=== PATIENT | male | born 1965 | race Caucasian/White ===

== ENCOUNTER 2022-11-12 08:41 | Inpatient (IN) | payer OTHER, MEDICAID ==
[~2022-11-12] VITALS: Ht 162.6 cm; Wt 60.8 kg
[2022-11-12 08:41] VITALS: BP_SYST 122; PULSE 66; RESP 19; TEMP 98.3; O2SAT 96
[~2022-11-12 08:41] MED LIST: OLAN2.5T3 PO
[2022-11-12 09:23] LABS: BASOPHILS % (AUTO) 0.2 % (0.0-2.0); EOSINOPHILS % (AUTO) 0.1 % (0.0-4.0); HEMATOCRIT 36.9 % (36-54); HEMOGLOBIN 11.9 g/dL (14.0-18.0); LYMPHOCYTES # (AUTO) 1.2 K/uL (1.0-5.5); MEAN CORPUSCULAR HEMOGLOBIN 32 pg (27-31); MEAN CORPUSCULAR HGB CONC 32 % (32-36); MEAN CORPUSCULAR VOLUME 98 fL (79.0-98.0); MONOCYTES # (AUTO) 0.7 K/uL (0.0-1.0); MONOCYTES % (AUTO) 5.1 % (1.7-9.3); NEUTROPHILS # (AUTO) 11.3 K/uL (1.8-7.7); NEUTROPHILS % (AUTO) 85.6 % (40.0-70.0); PLATELET COUNT (AUTO) 175 K/uL (130-430); RED BLOOD CELL COUNT(AUTO) 3.75 MIL/uL (4.2-6.2); WHITE BLOOD COUNT (AUTO) 13.2 K/uL (4.8-10.8)
[2022-11-12 09:42] LABS: CALCIUM 8.2 mg/dL (8.4-11.0); CREATININE 1.02 mg/dL (0.55-1.30)
[2022-11-12 09:48] LABS: ALBUMIN 2.6 g/dL (3.4-4.8); TOTAL BILIRUBIN 2.5 mg/dL (0.0-1.0)
[2022-11-12] MEDS ORDERED: cefTRIAXone 1 GM IVPB PREMIX 50 ML IV ONE (10:15)
[2022-11-12] MEDS ORDERED: LACTULOSE 20 GM/30 ML UDC PO ONE (10:15)
[2022-11-12] MEDS ORDERED: POTASSIUM CHLORIDE 20 MEQ/PKT PACKET PO ONE (10:45)
[2022-11-12] MEDS ORDERED: FURO20TA4 PO (10:49)
[2022-11-12] MEDS ORDERED: SPIR25TA6 PO (10:49)
[2022-11-12] MEDS ORDERED: PANT40TA45 PO (10:49)
[2022-11-12] MEDS ORDERED: ERGO1250 PO (10:49)
[2022-11-12] MEDS ORDERED: LACT10SO6 (10:49)
[2022-11-12] MEDS ORDERED: ONDA4TAB55 PO (10:49)
[2022-11-12] MEDS ORDERED: ALBMDI INH (10:49)
[2022-11-12] MEDS ORDERED: PRED15SO23 PO (10:49)
[2022-11-12] MEDS ORDERED: FOLI-43 PO (10:49)
[2022-11-12] MEDS ORDERED: MIDO5TAB4 PO (10:49)
[2022-11-12 11:00] LABS: INR 1.4 (0.80-1.20)
[2022-11-12 11:08] LABS: FREE T4 (FREE THYROXINE) 1.1 ng/dL (0.6-1.6); THYROID STIMULATING HORMONE 2.85 uIu/mL (0.34-4.82)
[2022-11-12] MEDS ORDERED: ONDANSETRON 4 MG ODT TAB PO ONE (11:15)
[2022-11-12 13:20] VITALS: BP_SYST 107; PULSE 115; RESP 18; TEMP 97.2; O2SAT 99
[2022-11-12 16:00] VITALS: BP_SYST 119; PULSE 79; RESP 19; TEMP 98; O2SAT 98
[2022-11-12] MEDS ORDERED: ONDANSETRON HCL 4 MG/2 ML VIAL IVP PRN (18:45)
[2022-11-12] MEDS ORDERED: NALOXONE HCL 0.4 MG/ML AMP (NARCAN) IVP PRN (18:45)
[2022-11-12 20:00] VITALS: BP_SYST 106; PULSE 110; RESP 20; TEMP 98.9; O2SAT 100
[2022-11-12] MEDS: LACTULOSE 20 GM/30 ML UDC PO SCH (21:00)
[2022-11-12] MEDS: HYDROcodone/ACETAMIN 5-325 MG TAB (NORCO/ VICODIN) PO PRN (21:47)
[2022-11-12] MEDS: TEMAZEPAM 15 MG CAPSULE PO PRN (23:16)
[2022-11-13] VITALS (7 sets, daily range): BP systolic 94–119; PULSE 92–125; RESP 18–24; TEMP 97.5–99; O2SAT 97–100
[2022-11-13 05:21] LABS: BASOPHILS # (AUTO) 0.1 K/uL (0.0-0.2); BASOPHILS % (AUTO) 0.4 % (0.0-2.0); EOSINOPHILS # (AUTO) 0.1 K/uL (0.0-0.4); EOSINOPHILS % (AUTO) 0.5 % (0.0-4.0); HEMATOCRIT 31.3 % (36-54); HEMOGLOBIN 10.5 g/dL (14.0-18.0); LYMPHOCYTES # (AUTO) 2.5 K/uL (1.0-5.5); LYMPHOCYTES % (AUTO) 18.2 % (20.5-51.5); MEAN CORPUSCULAR HEMOGLOBIN 32 pg (27-31); MEAN CORPUSCULAR HGB CONC 34 % (32-36); MEAN CORPUSCULAR VOLUME 96 fL (79.0-98.0); MONOCYTES # (AUTO) 1.1 K/uL (0.0-1.0); MONOCYTES % (AUTO) 7.6 % (1.7-9.3); NEUTROPHILS # (AUTO) 10.2 K/uL (1.8-7.7); NEUTROPHILS % (AUTO) 73.3 % (40.0-70.0); PLATELET COUNT (AUTO) 179 K/uL (130-430); RED BLOOD CELL COUNT(AUTO) 3.25 MIL/uL (4.2-6.2); RED CELL DISTRIBUTION WIDTH 15.6 % (9.0-15.0); WHITE BLOOD COUNT (AUTO) 13.9 K/uL (4.8-10.8)
[2022-11-13 05:52] LABS: ALBUMIN 2.1 g/dL (3.4-4.8); CALCIUM 7.1 mg/dL (8.4-11.0); CREATININE 1.19 mg/dL (0.55-1.30); TOTAL BILIRUBIN 1.5 mg/dL (0.0-1.0)
[2022-11-13] MEDS ORDERED: POTASSIUM CHLORIDE 20 MEQ TAB.PRT.SR PO ONE (06:30)
[2022-11-13] MEDS: LACTULOSE 20 GM/30 ML UDC PO SCH ×4 (08:41→21:25)
[2022-11-13] MEDS: HYDROcodone/ACETAMIN 5-325 MG TAB (NORCO/ VICODIN) PO PRN ×2 (11:33→17:54)
[2022-11-13 12:50] LABS: ALBUMIN 1.8 g/dL (3.4-4.8); CALCIUM 7.3 mg/dL (8.4-11.0); CREATININE 1.05 mg/dL (0.55-1.30); TOTAL BILIRUBIN 1.3 mg/dL (0.0-1.0)
[2022-11-13 14:23] LABS: BODY FLUID TOTAL PROTEIN 1.1 g/dL
[2022-11-13] MEDS: RIFAXIMIN 550 MG TABLET PO SCH (21:25)
[2022-11-13] MEDS: TEMAZEPAM 15 MG CAPSULE PO PRN (21:31)
[2022-11-14] VITALS (7 sets, daily range): BP systolic 98–119; PULSE 96–109; RESP 16–20; TEMP 97.5–99; O2SAT 95–100
[2022-11-14] MEDS: HYDROcodone/ACETAMIN 5-325 MG TAB (NORCO/ VICODIN) PO PRN ×3 (00:04→18:28)
[2022-11-14] MEDS ORDERED: MAG-AL HYDROX/SIMETH 30 ML UDC PO PRN (04:45)
[2022-11-14 08:06] LABS: HEPATITIS A AB, IgM Negative (Negative); HEPATITIS B CORE AB, IgM Negative (Negative); HEPATITIS B SURFACE AG Negative (Negative)
[2022-11-14] MEDS: LACTULOSE 20 GM/30 ML UDC PO SCH ×3 (08:55→20:54)
[2022-11-14] MEDS: RIFAXIMIN 550 MG TABLET PO SCH ×2 (10:06→21:12)
[2022-11-14] MEDS: TEMAZEPAM 15 MG CAPSULE PO PRN (21:12)
[2022-11-15 00:14] VITALS: BP_SYST 136; PULSE 56; RESP 20; TEMP 97.4; O2SAT 96
[2022-11-15] MEDS: HYDROcodone/ACETAMIN 5-325 MG TAB (NORCO/ VICODIN) PO PRN ×3 (00:39→20:38)
[2022-11-15 07:55] VITALS: BP_SYST 90; PULSE 112; RESP 14; TEMP 97.2; O2SAT 99
[2022-11-15] MEDS: LACTULOSE 20 GM/30 ML UDC PO SCH ×3 (09:00→20:43)
[2022-11-15] MEDS: RIFAXIMIN 550 MG TABLET PO SCH ×2 (09:50→20:39)
[2022-11-15 11:49] VITALS: BP_SYST 102; PULSE 115; RESP 18; TEMP 98.2; O2SAT 98
[2022-11-15 17:58] VITALS: BP_SYST 103; PULSE 103; RESP 18; TEMP 99; O2SAT 99
[2022-11-15 20:00] VITALS: BP_SYST 104; PULSE 116; RESP 20; TEMP 96.6; O2SAT 97
[2022-11-15 20:15] VITALS: O2SAT 97
[2022-11-15] MEDS: TEMAZEPAM 15 MG CAPSULE PO PRN (20:38)
[2022-11-16] MEDS: HYDROcodone/ACETAMIN 5-325 MG TAB (NORCO/ VICODIN) PO PRN ×4 (02:27→22:07)
[2022-11-16 02:30] VITALS: BP_SYST 107; PULSE 117; RESP 20
[2022-11-16 08:00] VITALS: O2SAT 99
[2022-11-16 08:10] VITALS: BP_SYST 93; PULSE 100; RESP 16; TEMP 98; O2SAT 99
[2022-11-16] MEDS: LACTULOSE 20 GM/30 ML UDC PO SCH ×4 (09:00→20:34)
[2022-11-16] MEDS: RIFAXIMIN 550 MG TABLET PO SCH ×2 (09:06→20:31)
[2022-11-16] MEDS ORDERED: SPIRONOLACTONE 50 MG TABLET (ALDACTONE) PO ONE (10:30)
[2022-11-16] MEDS ORDERED: FUROSEMIDE 40 MG TABLET PO ONE (10:30)
[2022-11-16 11:30] VITALS: BP_SYST 109; PULSE 88; RESP 18; TEMP 98.4; O2SAT 100
[2022-11-16 20:30] VITALS: BP_SYST 114; PULSE 130; RESP 20; TEMP 98.6; O2SAT 99
[2022-11-16] MEDS: TEMAZEPAM 15 MG CAPSULE PO PRN (22:06)
[2022-11-17 00:17] VITALS: BP_SYST 110; PULSE 124; RESP 20; TEMP 98.8; O2SAT 99
[2022-11-17] MEDS: HYDROcodone/ACETAMIN 5-325 MG TAB (NORCO/ VICODIN) PO PRN ×2 (04:02→11:59)
[2022-11-17 05:22] LABS: BASOPHILS # (AUTO) 0.1 K/uL (0.0-0.2); BASOPHILS % (AUTO) 0.8 % (0.0-2.0); EOSINOPHILS # (AUTO) 0.1 K/uL (0.0-0.4); EOSINOPHILS % (AUTO) 1.6 % (0.0-4.0); HEMATOCRIT 31.6 % (36-54); HEMOGLOBIN 10.5 g/dL (14.0-18.0); LYMPHOCYTES # (AUTO) 2.3 K/uL (1.0-5.5); LYMPHOCYTES % (AUTO) 29.2 % (20.5-51.5); MEAN CORPUSCULAR HEMOGLOBIN 32 pg (27-31); MEAN CORPUSCULAR HGB CONC 33 % (32-36); MEAN CORPUSCULAR VOLUME 96 fL (79.0-98.0); MONOCYTES # (AUTO) 1.2 K/uL (0.0-1.0); MONOCYTES % (AUTO) 14.7 % (1.7-9.3); NEUTROPHILS # (AUTO) 4.3 K/uL (1.8-7.7); NEUTROPHILS % (AUTO) 53.7 % (40.0-70.0); PLATELET COUNT (AUTO) 201 K/uL (130-430); RED BLOOD CELL COUNT(AUTO) 3.28 MIL/uL (4.2-6.2); RED CELL DISTRIBUTION WIDTH 15.3 % (9.0-15.0)
[2022-11-17 05:32] LABS: CALCIUM 7.4 mg/dL (8.4-11.0); CREATININE 1.01 mg/dL (0.55-1.30); TOTAL BILIRUBIN 0.8 mg/dL (0.0-1.0)
[2022-11-17 08:00] VITALS: BP_SYST 112; PULSE 91; RESP 20; TEMP 97.6; O2SAT 97
[2022-11-17] MEDS ORDERED: SPIRONOLACTONE 50 MG TABLET (ALDACTONE) PO SCH (09:00)
[2022-11-17] MEDS: RIFAXIMIN 550 MG TABLET PO SCH (09:00)
[2022-11-17] MEDS ORDERED: FUROSEMIDE 40 MG TABLET PO SCH (09:00)
[2022-11-17] MEDS: LACTULOSE 20 GM/30 ML UDC PO SCH (10:30)
[2022-11-17 12:12] VITALS: BP_SYST 126; PULSE 75; RESP 20; TEMP 97.6; O2SAT 90
[2022-11-17 14:11] VITALS: BP_SYST 121; PULSE 77; RESP 20; TEMP 98.2; O2SAT 99
== END 2022-11-17 16:20 | disposition home or self-care (01) | DRG 432 ==
LOC: SED 08:41 → SMU 10:41
PROVIDERS: ADMIT Internal Medicine; ATTEND Internal Medicine
PROC: 0W9G3ZZ Drainage of Peritoneal Cavity, Percutaneous Approach (ICD-10-PCS; principal; 2022-11-12)
DX: K70.31 Alcoholic cirrhosis of liver with ascites (principal); R65.11 Systemic inflammatory response syndrome (SIRS) of non-infectious origin with acute organ dysfunction; K72.10 Chronic hepatic failure without coma; K76.82 Hepatic encephalopathy; J45.909 Unspecified asthma, uncomplicated; F29 Unspecified psychosis not due to a substance or known physiological condition; F32.A Depression, unspecified; F10.20 Alcohol dependence, uncomplicated; Y90.9 Presence of alcohol in blood, level not specified; D64.9 Anemia, unspecified; Z20.822 Contact with and (suspected) exposure to COVID-19; Z59.00 Homelessness unspecified
CPT/HCPCS: 36415; 49083; 71045; 76700-TC; 76705; 80053; 80074; 82140; 82947; 83690; 84157; 84439; 84443; 85025; 85610-TC; 85730-TC; 87070-TC; 87081; 93005; 96365; 99285; J0696; J2405; Q0162

== ENCOUNTER 2022-11-28 07:05 | Emergency (ER) | payer OTHER, MEDICAID ==
[~2022-11-28] VITALS: Ht 165.1 cm; Wt 70.8 kg
[~2022-11-28 07:05] MED LIST changes: +ALBMDI INH; +ERGO1250 PO; +FOLI-43 PO; +FURO20TA4 PO; +LACT10SO6; +MIDO5TAB4 PO; +ONDA4TAB55 PO; +PANT40TA45 PO; +PRED15SO23 PO; +SPIR25TA6 PO
[2022-11-28 07:10] VITALS: BP_SYST 112
[2022-11-28 08:11] LABS: BASOPHILS % (AUTO) 0.5 % (0.0-2.0); EOSINOPHILS % (AUTO) 0.1 % (0.0-4.0); HEMATOCRIT 38.2 % (36-54); HEMOGLOBIN 12.6 g/dL (14.0-18.0); LYMPHOCYTES # (AUTO) 0.8 K/uL (1.0-5.5); LYMPHOCYTES % (AUTO) 8.5 % (20.5-51.5); MEAN CORPUSCULAR HEMOGLOBIN 32 pg (27-31); MEAN CORPUSCULAR HGB CONC 33 % (32-36); MEAN CORPUSCULAR VOLUME 96 fL (79.0-98.0); MONOCYTES # (AUTO) 0.4 K/uL (0.0-1.0); MONOCYTES % (AUTO) 3.7 % (1.7-9.3); NEUTROPHILS # (AUTO) 8.7 K/uL (1.8-7.7); NEUTROPHILS % (AUTO) 87.2 % (40.0-70.0); PLATELET COUNT (AUTO) 294 K/uL (130-430); RED CELL DISTRIBUTION WIDTH 14.9 % (9.0-15.0)
[2022-11-28 08:20] LABS: INR 1.2 (0.80-1.20); PROTHROMBIN TIME 12.5 SECS (9.5-12.5)
[2022-11-28 08:23] LABS: ALANINE AMINOTRANSFERASE 16 U/L (12-78); ALBUMIN 2.4 g/dL (3.4-4.8); AMYLASE 145 U/L (0-100); ANION GAP 15 (5-15); ASPARTATE AMINOTRANSFERASE 41 U/L (10-37); C-REACTIVE PROTEIN QUANT 2.5 mg/dL (0-0.5); CALCIUM 7.9 mg/dL (8.4-11.0); CHLORIDE 99 mmol/L (98-107); CREATININE 0.98 mg/dL (0.55-1.30); GFR AFRICAN AMERICAN 102 mL/min (>90); GLUCOSE 86 mg/dL (70-99); LIPASE 379 U/L (73-393); TOTAL BILIRUBIN 1.7 mg/dL (0.0-1.0); UREA NITROGEN, BLOOD 6 mg/dL (8-21)
[2022-11-28 08:38] LABS: ACETONE, SERUM NEGATIVE (NEGATIVE)
[2022-11-28] MEDS ORDERED: POTASSIUM CHLORIDE 20 MEQ/PKT PACKET PO ONE (09:15)
[2022-11-28] MEDS ORDERED: POTASSIUM CHLORIDE 20 MEQ/PKT PACKET ONE (09:21)
[2022-11-28 10:09] VITALS: BP_SYST 102
== END 2022-11-28 10:09 | disposition home or self-care (01) ==
LOC: SED 07:05
DX: K70.31 Alcoholic cirrhosis of liver with ascites (principal); R85.5 Abnormal microbiological findings in specimens from digestive organs and abdominal cavity; R10.84 Generalized abdominal pain; J45.909 Unspecified asthma, uncomplicated; Z79.899 Other long term (current) drug therapy
CPT/HCPCS: 36415; 49083; 80053; 82009; 82150; 83605; 83690; 85025; 85610-TC; 85730-TC; 86140; 99285

== ENCOUNTER 2023-05-07 15:40 | Inpatient (IN) | payer OTHER, MEDICAID ==
[~2023-05-07] VITALS: Ht 162.6 cm; Wt 63.6 kg
[2023-05-07 15:40] VITALS: BP_SYST 121; PULSE 91; RESP 20; TEMP 97.8; O2SAT 100
[~2023-05-07 15:40] MED LIST changes: +FURO-150 PO; -FURO20TA4 PO; -PRED15SO23 PO; +PRED15SO72 PO; +SERT-436 PO; +SPIR25TA PO; -SPIR25TA6 PO; +TRAZ-250 PO
[2023-05-08] LABS: BASOPHILS # (AUTO) 0.1 K/uL (0.0-0.2); BASOPHILS % (AUTO) 1.1 % (0.0-2.0); EOSINOPHILS # (AUTO) 0.2 K/uL (0.0-0.4); EOSINOPHILS % (AUTO) 2.4 % (0.0-4.0); HEMATOCRIT 32.5 % (36-54); HEMOGLOBIN 10.7 g/dL (14.0-18.0); LYMPHOCYTES # (AUTO) 1.9 K/uL (1.0-5.5); LYMPHOCYTES % (AUTO) 23.6 % (20.5-51.5); MEAN CORPUSCULAR HEMOGLOBIN 31 pg (27-31); MEAN CORPUSCULAR HGB CONC 33 % (32-36); MEAN CORPUSCULAR VOLUME 93 fL (79.0-98.0); MONOCYTES # (AUTO) 0.4 K/uL (0.0-1.0); MONOCYTES % (AUTO) 4.8 % (1.7-9.3); NEUTROPHILS # (AUTO) 5.5 K/uL (1.8-7.7); NEUTROPHILS % (AUTO) 68.1 % (40.0-70.0); PLATELET COUNT (AUTO) 441 K/uL (130-430); RED BLOOD CELL COUNT(AUTO) 3.49 MIL/uL (4.2-6.2); WHITE BLOOD COUNT (AUTO) 8.1 K/uL (4.8-10.8)
[2023-05-08 00:16] LABS: CALCIUM 8.2 mg/dL (8.4-11.0); CREATININE 0.9 mg/dL (0.55-1.30); POTASSIUM 3.1 mmol/L (3.5-5.1)
[2023-05-08 00:22] LABS: ALBUMIN 1.8 g/dL (3.4-4.8); TOTAL BILIRUBIN 0.8 mg/dL (0.0-1.0); TOTAL PROTEIN, SERUM 6.6 g/dL (6.4-8.3)
[2023-05-08 01:40] LABS: BILIRUBIN,URINE NEGATIVE (NEGATIVE); BLOOD, URINE NEGATIVE (NEGATIVE); CLARITY/URINE CLEAR (CLEAR); COLOR,URINE YELLOW (YELLOW); GLUCOSE,URINE NEGATIVE (NEGATIVE); KETONES,URINE NEGATIVE (NEGATIVE); LEUKOCYTE ESTERASE ,URINE NEGATIVE (NEGATIVE); NITRITE, URINE NEGATIVE (NEGATIVE)
[2023-05-08 02:20] VITALS: BP_SYST 107; PULSE 100; RESP 18; TEMP 98.9
[2023-05-08 03:26] LABS: PROTEIN URINE NEGATIVE (NEGATIVE)
[2023-05-08 05:42] LABS: BASOPHILS # (AUTO) 0.1 K/uL (0.0-0.2); BASOPHILS % (AUTO) 1.3 % (0.0-2.0); EOSINOPHILS # (AUTO) 0.3 K/uL (0.0-0.4); EOSINOPHILS % (AUTO) 3.3 % (0.0-4.0); HEMATOCRIT 31.2 % (36-54); HEMOGLOBIN 10.1 g/dL (14.0-18.0); LYMPHOCYTES # (AUTO) 1.5 K/uL (1.0-5.5); MEAN CORPUSCULAR HEMOGLOBIN 30 pg (27-31); MEAN CORPUSCULAR HGB CONC 32 % (32-36); MEAN CORPUSCULAR VOLUME 94 fL (79.0-98.0); MONOCYTES # (AUTO) 0.5 K/uL (0.0-1.0); MONOCYTES % (AUTO) 6.1 % (1.7-9.3); NEUTROPHILS # (AUTO) 5.3 K/uL (1.8-7.7); NEUTROPHILS % (AUTO) 69.3 % (40.0-70.0); PLATELET COUNT (AUTO) 370 K/uL (130-430); RED BLOOD CELL COUNT(AUTO) 3.33 MIL/uL (4.2-6.2); RED CELL DISTRIBUTION WIDTH 14.4 % (9.0-15.0); WHITE BLOOD COUNT (AUTO) 7.7 K/uL (4.8-10.8)
[2023-05-08] MEDS: MORPHINE 2 MG/ML INJ. SYRINGE IVP PRN ×3 (05:48→20:39)
[2023-05-08 05:55] LABS: CALCIUM 8.3 mg/dL (8.4-11.0); CREATININE 0.87 mg/dL (0.55-1.30); POTASSIUM 3.1 mmol/L (3.5-5.1)
[2023-05-08 05:59] LABS: ALBUMIN 1.7 g/dL (3.4-4.8); INR 1.1 (0.80-1.20); PROTHROMBIN TIME 11.4 SECS (9.5-12.5); TOTAL BILIRUBIN 0.8 mg/dL (0.0-1.0); TOTAL PROTEIN, SERUM 6.2 g/dL (6.4-8.3)
[2023-05-08 08:00] VITALS: BP_SYST 106; PULSE 108; RESP 22; TEMP 98.8; O2SAT 100
[2023-05-08] MEDS: FUROSEMIDE 40 MG TABLET PO SCH (09:14)
[2023-05-08] MEDS: SPIRONOLACTONE 50 MG TABLET (ALDACTONE) PO SCH (09:15)
[2023-05-08 12:53] VITALS: BP_SYST 108; PULSE 101; RESP 20; TEMP 98.6; O2SAT 98
[2023-05-08 15:36] LABS: BF APPEARANCE UNSPUN CLEAR (CLEAR); BODY FLUID COLOR YELLOW (LT YELLOW); BODY FLUID TOTAL VOLUME 2125 mL; RBC, BODY FLUID 8 /uL; SOURCE/TYPE ,BODY FLUID PARACENTESIS; WBC, BODY FLUID 18 /uL
[2023-05-08 15:37] LABS: LYMPHOCYTES, BODY FLUID 78 %; NEUTROPHIL, BODY FLUID 22 %
[2023-05-08] MEDS: MIDODRINE HCL 5 MG TABLET (PROAMATINE) PO SCH ×2 (15:41→20:38)
[2023-05-08 16:34] VITALS: BP_SYST 107; PULSE 105; RESP 21; TEMP 98.7; O2SAT 99
[2023-05-08] MEDS: LACTULOSE 20 GM/30 ML UDC PO SCH (20:38)
[2023-05-09 00:14] VITALS: BP_SYST 86; PULSE 83; RESP 18; TEMP 99; O2SAT 96
[2023-05-09] MEDS: MORPHINE 2 MG/ML INJ. SYRINGE IVP PRN ×2 (02:52→18:30)
[2023-05-09 06:06] LABS: BODY FLUID GLUCOSE 98 mg/dL; BODY FLUID TOTAL PROTEIN < 2.0 g/dL
[2023-05-09 07:40] LABS: BASOPHILS # (AUTO) 0.1 K/uL (0.0-0.2); BASOPHILS % (AUTO) 0.8 % (0.0-2.0); EOSINOPHILS # (AUTO) 0.4 K/uL (0.0-0.4); EOSINOPHILS % (AUTO) 4.2 % (0.0-4.0); HEMATOCRIT 31.2 % (36-54); HEMOGLOBIN 10.1 g/dL (14.0-18.0); LYMPHOCYTES # (AUTO) 1.9 K/uL (1.0-5.5); LYMPHOCYTES % (AUTO) 22.1 % (20.5-51.5); MEAN CORPUSCULAR HEMOGLOBIN 30 pg (27-31); MEAN CORPUSCULAR HGB CONC 32 % (32-36); MEAN CORPUSCULAR VOLUME 94 fL (79.0-98.0); MONOCYTES # (AUTO) 0.5 K/uL (0.0-1.0); MONOCYTES % (AUTO) 6.3 % (1.7-9.3); NEUTROPHILS # (AUTO) 5.6 K/uL (1.8-7.7); NEUTROPHILS % (AUTO) 66.6 % (40.0-70.0); PLATELET COUNT (AUTO) 274 K/uL (130-430); RED BLOOD CELL COUNT(AUTO) 3.32 MIL/uL (4.2-6.2); RED CELL DISTRIBUTION WIDTH 14.2 % (9.0-15.0); WHITE BLOOD COUNT (AUTO) 8.5 K/uL (4.8-10.8)
[2023-05-09 07:41] VITALS: BP_SYST 92; PULSE 85; RESP 16; TEMP 97.1; O2SAT 98
[2023-05-09 07:47] LABS: CALCIUM 7.5 mg/dL (8.4-11.0); CREATININE 0.83 mg/dL (0.55-1.30); POTASSIUM 3.1 mmol/L (3.5-5.1)
[2023-05-09] MEDS: LACTULOSE 20 GM/30 ML UDC PO SCH ×3 (09:00→21:09)
[2023-05-09] MEDS: SERTRALINE HCL 50 MG TABLET PO SCH (09:00)
[2023-05-09] MEDS: FOLIC ACID 1 MG TABLET PO SCH (09:54)
[2023-05-09] MEDS: OLANZapine 2.5 MG TABLET PO SCH (09:55)
[2023-05-09] MEDS: MIDODRINE HCL 5 MG TABLET (PROAMATINE) PO SCH ×3 (09:55→21:09)
[2023-05-09] MEDS: FUROSEMIDE 40 MG TABLET PO SCH (09:56)
[2023-05-09] MEDS: PANTOPRAZOLE SODIUM 40 MG TAB PO SCH (09:56)
[2023-05-09] MEDS: SPIRONOLACTONE 50 MG TABLET (ALDACTONE) PO SCH (09:57)
[2023-05-09] MEDS ORDERED: POTASSIUM CHLORIDE 20 MEQ TABLET.ER PO ONE (11:45)
[2023-05-09 12:01] VITALS: BP_SYST 99; PULSE 89; RESP 17; TEMP 98.4; O2SAT 98
[2023-05-09 16:00] VITALS: BP_SYST 98; PULSE 86; RESP 17; TEMP 97.8; O2SAT 97
[2023-05-09 20:00] VITALS: BP_SYST 100; PULSE 76; RESP 18; TEMP 98.4; O2SAT 96
[2023-05-09] MEDS: traZODone HCL 50 MG TABLET (DESYREL) PO PRN (21:09)
[2023-05-10] VITALS: BP_SYST 103; PULSE 95; RESP 18; TEMP 97.3; O2SAT 94
[2023-05-10] MEDS: MORPHINE 2 MG/ML INJ. SYRINGE IVP PRN (01:46)
[2023-05-10 07:35] LABS: BASOPHILS % (AUTO) 0.4 % (0.0-2.0); EOSINOPHILS # (AUTO) 0.2 K/uL (0.0-0.4); EOSINOPHILS % (AUTO) 1.7 % (0.0-4.0); HEMATOCRIT 24.8 % (36-54); HEMOGLOBIN 7.7 g/dL (14.0-18.0); LYMPHOCYTES # (AUTO) 1.5 K/uL (1.0-5.5); LYMPHOCYTES % (AUTO) 13.3 % (20.5-51.5); MEAN CORPUSCULAR HEMOGLOBIN 30 pg (27-31); MEAN CORPUSCULAR HGB CONC 31 % (32-36); MEAN CORPUSCULAR VOLUME 95 fL (79.0-98.0); MONOCYTES # (AUTO) 0.4 K/uL (0.0-1.0); MONOCYTES % (AUTO) 3.2 % (1.7-9.3); NEUTROPHILS # (AUTO) 9.2 K/uL (1.8-7.7); NEUTROPHILS % (AUTO) 81.4 % (40.0-70.0); PLATELET COUNT (AUTO) 300 K/uL (130-430); RED BLOOD CELL COUNT(AUTO) 2.61 MIL/uL (4.2-6.2); RED CELL DISTRIBUTION WIDTH 13.7 % (9.0-15.0); WHITE BLOOD COUNT (AUTO) 11.3 K/uL (4.8-10.8)
[2023-05-10 07:44] LABS: CALCIUM 8.2 mg/dL (8.4-11.0); CREATININE 0.99 mg/dL (0.55-1.30); POTASSIUM 4.1 mmol/L (3.5-5.1)
[2023-05-10 08:00] VITALS: BP_SYST 97; PULSE 104; RESP 18; TEMP 98.4; O2SAT 97
[2023-05-10] MEDS: PANTOPRAZOLE SODIUM 40 MG TAB PO SCH (08:18)
[2023-05-10] MEDS: FUROSEMIDE 40 MG TABLET PO SCH (08:18)
[2023-05-10] MEDS: LACTULOSE 20 GM/30 ML UDC PO SCH ×2 (08:18→21:43)
[2023-05-10] MEDS: SPIRONOLACTONE 50 MG TABLET (ALDACTONE) PO SCH (08:19)
[2023-05-10] MEDS: FOLIC ACID 1 MG TABLET PO SCH (08:19)
[2023-05-10] MEDS: SERTRALINE HCL 50 MG TABLET PO SCH (08:19)
[2023-05-10] MEDS: OLANZapine 2.5 MG TABLET PO SCH (08:19)
[2023-05-10] MEDS: MIDODRINE HCL 5 MG TABLET (PROAMATINE) PO SCH ×3 (08:21→21:44)
[2023-05-10 09:55] VITALS: O2SAT 97
[2023-05-10 12:00] VITALS: BP_SYST 93; PULSE 94; RESP 18; TEMP 99.5; O2SAT 98
[2023-05-10] MEDS: HYDROcodone/ACETAMIN 5-325 MG TAB (NORCO/ VICODIN) PO PRN (12:21)
[2023-05-10 16:00] VITALS: BP_SYST 124; PULSE 112; RESP 18; TEMP 98.9; O2SAT 97
[2023-05-10 20:00] VITALS: BP_SYST 94; PULSE 91; RESP 20; TEMP 98.9; O2SAT 98
[2023-05-10] MEDS: traZODone HCL 50 MG TABLET (DESYREL) PO PRN (21:45)
[2023-05-11 00:05] VITALS: BP_SYST 96; PULSE 84; RESP 18; TEMP 98.5; O2SAT 96
[2023-05-11] MEDS: HYDROcodone/ACETAMIN 5-325 MG TAB (NORCO/ VICODIN) PO PRN (03:27)
[2023-05-11 06:02] LABS: BASOPHILS % (AUTO) 0.5 % (0.0-2.0); EOSINOPHILS # (AUTO) 0.2 K/uL (0.0-0.4); EOSINOPHILS % (AUTO) 2.9 % (0.0-4.0); HEMATOCRIT 28.2 % (36-54); LYMPHOCYTES # (AUTO) 1.4 K/uL (1.0-5.5); LYMPHOCYTES % (AUTO) 16.5 % (20.5-51.5); MEAN CORPUSCULAR HEMOGLOBIN 31 pg (27-31); MEAN CORPUSCULAR HGB CONC 32 % (32-36); MEAN CORPUSCULAR VOLUME 95 fL (79.0-98.0); MONOCYTES # (AUTO) 0.7 K/uL (0.0-1.0); MONOCYTES % (AUTO) 8.1 % (1.7-9.3); PLATELET COUNT (AUTO) 252 K/uL (130-430); RED BLOOD CELL COUNT(AUTO) 2.96 MIL/uL (4.2-6.2); WHITE BLOOD COUNT (AUTO) 8.3 K/uL (4.8-10.8)
[2023-05-11 06:17] LABS: CALCIUM 8.4 mg/dL (8.4-11.0); CREATININE 1.18 mg/dL (0.55-1.30); POTASSIUM 3.8 mmol/L (3.5-5.1)
[2023-05-11 08:00] VITALS: O2SAT 98
[2023-05-11] MEDS: PANTOPRAZOLE SODIUM 40 MG TAB PO SCH (09:04)
[2023-05-11] MEDS: MIDODRINE HCL 5 MG TABLET (PROAMATINE) PO SCH ×2 (09:06→16:11)
[2023-05-11] MEDS: SPIRONOLACTONE 50 MG TABLET (ALDACTONE) PO SCH (09:07)
[2023-05-11] MEDS: FUROSEMIDE 40 MG TABLET PO SCH (09:08)
[2023-05-11] MEDS: SERTRALINE HCL 50 MG TABLET PO SCH (09:11)
[2023-05-11] MEDS: OLANZapine 2.5 MG TABLET PO SCH (09:12)
[2023-05-11] MEDS: FOLIC ACID 1 MG TABLET PO SCH (09:12)
[2023-05-11] MEDS: LACTULOSE 20 GM/30 ML UDC PO SCH (09:13)
[2023-05-11 09:19] VITALS: BP_SYST 80; PULSE 68; RESP 18; TEMP 98.7; O2SAT 98
[2023-05-11 11:30] VITALS: BP_SYST 93; PULSE 99; RESP 18; TEMP 98.3; O2SAT 98
[2023-05-11 16:30] VITALS: BP_SYST 92; PULSE 80; RESP 18; TEMP 98; O2SAT 97
[2023-05-11 16:35] VITALS: BP_SYST 93; PULSE 99; RESP 18; TEMP 98.3; O2SAT 96
== END 2023-05-11 20:22 | DRG 432 ==
LOC: SED 15:40 → STU 05-08 01:09 → SMU 05-09 23:37
PROVIDERS: ADMIT Internal Medicine; ATTEND Internal Medicine
PROC: 0W9G3ZZ Drainage of Peritoneal Cavity, Percutaneous Approach (ICD-10-PCS; principal; 2023-05-08)
DX: K70.31 Alcoholic cirrhosis of liver with ascites (principal); E43 Unspecified severe protein-calorie malnutrition; Z59.00 Homelessness unspecified; J45.909 Unspecified asthma, uncomplicated; Z79.899 Other long term (current) drug therapy; Z90.49 Acquired absence of other specified parts of digestive tract; Z68.24 Body mass index [BMI] 24.0-24.9, adult
CPT/HCPCS: 36415; 49083; 71045; 80048; 80053; 81001; 81003; 82947; 83605; 84157; 85025; 85610-TC; 85730-TC; 87040; 87081; 88108; 89051-TC; 89060-TC; 93005; 97116-GP; 97530-GP; 99285; G0378; J2270

== ENCOUNTER 2023-09-12 20:48 | Inpatient (IN) | payer OTHER, MEDICAID ==
[~2023-09-12] VITALS: Ht 162.6 cm; Wt 63.5 kg
[~2023-09-12 20:48] MED LIST changes: -ALBMDI INH; -ERGO1250 PO; -ONDA4TAB55 PO; -PRED15SO72 PO
[2023-09-12 20:52] VITALS: BP_SYST 117; PULSE 63; RESP 20; TEMP 97.5; O2SAT 98
[2023-09-12 21:43] LABS: BASOPHILS % (AUTO) 0.5 % (0.0-2.0); EOSINOPHILS % (AUTO) 0.3 % (0.0-4.0); HEMATOCRIT 28.7 % (36-54); LYMPHOCYTES # (AUTO) 0.5 K/uL (1.0-5.5); LYMPHOCYTES % (AUTO) 8.6 % (20.5-51.5); MEAN CORPUSCULAR HEMOGLOBIN 32 pg (27-31); MEAN CORPUSCULAR HGB CONC 35 % (32-36); MEAN CORPUSCULAR VOLUME 92 fL (79.0-98.0); MONOCYTES # (AUTO) 0.3 K/uL (0.0-1.0); MONOCYTES % (AUTO) 5.1 % (1.7-9.3); NEUTROPHILS # (AUTO) 5.3 K/uL (1.8-7.7); NEUTROPHILS % (AUTO) 85.5 % (40.0-70.0); PLATELET COUNT (AUTO) 127 K/uL (130-430); RED BLOOD CELL COUNT(AUTO) 3.11 MIL/uL (4.2-6.2); RED CELL DISTRIBUTION WIDTH 16.3 % (9.0-15.0); WHITE BLOOD COUNT (AUTO) 6.2 K/uL (4.8-10.8)
[2023-09-12 22:00] LABS: CALCIUM 8.4 mg/dL (8.4-11.0); CREATININE 0.55 mg/dL (0.55-1.30)
[2023-09-12 22:01] LABS: ALBUMIN 3.3 g/dL (3.4-4.8); TOTAL PROTEIN, SERUM 7.9 g/dL (6.4-8.3)
[2023-09-12 22:05] LABS: POTASSIUM 2.9 mmol/L (3.5-5.1)
[2023-09-12 22:06] LABS: TOTAL BILIRUBIN 21.7 mg/dL (0.0-1.0)
[2023-09-12] MEDS ORDERED: KCL 20 mEq in 100 mL (PREMIX) 200 ML IV ONE (23:07)
[2023-09-12] MEDS: POTASSIUM CHLORIDE 40 MEQ in 0.45% NS 250 ML IV ONE (23:13)
[2023-09-12] MEDS: KCL 20 mEq in 100 mL (PREMIX) 100 ML IV ONE ×2 (23:15→23:21)
[2023-09-12] MEDS: MORPHINE 2 MG/ML INJ. SYRINGE IVP ONE (23:21)
[2023-09-13 00:15] LABS: BILIRUBIN,URINE 3+ (NEGATIVE); BLOOD, URINE NEGATIVE (NEGATIVE); CLARITY/URINE CLEAR (CLEAR); COLOR,URINE YELLOW (YELLOW); GLUCOSE,URINE NEGATIVE (NEGATIVE); KETONES,URINE TRACE (NEGATIVE); LEUKOCYTE ESTERASE ,URINE NEGATIVE (NEGATIVE); NITRITE, URINE NEGATIVE (NEGATIVE); PH,URINE 6.5 (5.0-8.0); PROTEIN URINE 1+ (NEGATIVE)
[2023-09-13 00:36] LABS: BARBITURATE, URINE NEGATIVE (NEG <=200); BENZODIAZEPINE, URINE NEGATIVE (NEG <=150); CANNABINOID, URINE NEGATIVE (NEG <=50); COCAINE, URINE NEGATIVE (NEG <=150); METHAMPHETAMINES SCREEN,URINE NEGATIVE (NEG <=500); OPIATE, URINE POSITIVE (NEG <=100); PHENCYCLIDINE SCREEN,URINE NEGATIVE (NEG <=25); UR TRICYCLIC ANTIDEPRESSANTS NEGATIVE (NEG <=300); URINE AMPHETAMINE NEGATIVE (NEG <=500); URINE METHADONE NEGATIVE (NEG <=200); URINE OXYCODONE SCREEN NEGATIVE (NEG <=100)
[2023-09-13 00:52] LABS: BACTERIA,URINE RARE /HPF (None Seen)
[2023-09-13] MEDS ORDERED: THIAMINE HCL 200 MG/2 ML VIAL ONE (01:25)
[2023-09-13] MEDS ORDERED: FOLIC ACID 5 MG/ML VIAL IV ONE (01:25)
[2023-09-13] MEDS ORDERED: MAGNESIUM SULFATE 1 GM/2 ML VIAL ONE (01:25)
[2023-09-13] MEDS ORDERED: MVI 10 ML VIAL IV ONE (01:25)
[2023-09-13] MEDS: PANTOPRAZOLE SODIUM 40 MG/VIAL (PROTONIX) IVP ONE ×2 (01:37→01:39)
[2023-09-13] MEDS: chlordiazePOXIDE HCL 25 MG CAPSULE PO ONE (01:39)
[2023-09-13] MEDS: FOLIC ACID 1 MG, THIAMINE HCL 100 MG, MAGNESIUM SULFATE 1 GM, MVI 10 ML in NACL 0.9% 1,... IV ONE (01:40)
[2023-09-13] MEDS: chlordiazePOXIDE HCL 25 MG CAPSULE PO SCH (09:15)
[2023-09-13] MEDS: PANTOPRAZOLE SODIUM 40 MG/VIAL (PROTONIX) IVP SCH (09:15)
[2023-09-13 12:00] VITALS: BP_SYST 128; PULSE 83; RESP 16; TEMP 99.7; O2SAT 97
[2023-09-13] MEDS: THIAMINE HCL 100 MG TABLET PO ONE (12:25)
[2023-09-13] MEDS: FOLIC ACID 1 MG TABLET PO ONE (12:25)
[2023-09-13 12:35] LABS: BASOPHILS # (AUTO) 0.1 K/uL (0.0-0.2); BASOPHILS % (AUTO) 0.8 % (0.0-2.0); EOSINOPHILS # (AUTO) 0.1 K/uL (0.0-0.4); EOSINOPHILS % (AUTO) 1.3 % (0.0-4.0); HEMATOCRIT 27.7 % (36-54); HEMOGLOBIN 9.5 g/dL (14.0-18.0); LYMPHOCYTES # (AUTO) 0.5 K/uL (1.0-5.5); LYMPHOCYTES % (AUTO) 8.6 % (20.5-51.5); MEAN CORPUSCULAR HEMOGLOBIN 32 pg (27-31); MEAN CORPUSCULAR HGB CONC 34 % (32-36); MEAN CORPUSCULAR VOLUME 93 fL (79.0-98.0); MONOCYTES # (AUTO) 0.5 K/uL (0.0-1.0); MONOCYTES % (AUTO) 9.1 % (1.7-9.3); NEUTROPHILS # (AUTO) 4.7 K/uL (1.8-7.7); NEUTROPHILS % (AUTO) 80.2 % (40.0-70.0); PLATELET COUNT (AUTO) 126 K/uL (130-430); RED BLOOD CELL COUNT(AUTO) 2.97 MIL/uL (4.2-6.2); RED CELL DISTRIBUTION WIDTH 16.4 % (9.0-15.0); WHITE BLOOD COUNT (AUTO) 5.9 K/uL (4.8-10.8)
[2023-09-13 12:38] LABS: CREATININE 0.65 mg/dL (0.55-1.30); POTASSIUM 3.8 mmol/L (3.5-5.1)
[2023-09-13 12:51] LABS: ALBUMIN 2.9 g/dL (3.4-4.8); TOTAL PROTEIN, SERUM 7.2 g/dL (6.4-8.3)
[2023-09-13 12:55] LABS: TOTAL BILIRUBIN 20.9 mg/dL (0.0-1.0)
[2023-09-13 16:58] VITALS: BP_SYST 123; PULSE 85; RESP 18; TEMP 99.7; O2SAT 98
[2023-09-13 20:00] VITALS: BP_SYST 115; PULSE 94; RESP 18; TEMP 100.4; O2SAT 98
[2023-09-13] MEDS: DIPHENHYDRAMINE INJ 50 MG/ML VIAL IVP PRN (20:29)
[2023-09-13 20:30] VITALS: O2SAT 98
[2023-09-14 00:15] VITALS: BP_SYST 121; PULSE 92; RESP 18; TEMP 99.8; O2SAT 95
[2023-09-14 06:34] LABS: BASOPHILS # (AUTO) 0.1 K/uL (0.0-0.2); BASOPHILS % (AUTO) 0.7 % (0.0-2.0); EOSINOPHILS # (AUTO) 0.2 K/uL (0.0-0.4); EOSINOPHILS % (AUTO) 2.5 % (0.0-4.0); HEMATOCRIT 27.2 % (36-54); HEMOGLOBIN 9.4 g/dL (14.0-18.0); LYMPHOCYTES # (AUTO) 0.9 K/uL (1.0-5.5); LYMPHOCYTES % (AUTO) 12.4 % (20.5-51.5); MEAN CORPUSCULAR HEMOGLOBIN 33 pg (27-31); MEAN CORPUSCULAR HGB CONC 35 % (32-36); MEAN CORPUSCULAR VOLUME 94 fL (79.0-98.0); MONOCYTES # (AUTO) 0.6 K/uL (0.0-1.0); MONOCYTES % (AUTO) 8.5 % (1.7-9.3); NEUTROPHILS # (AUTO) 5.6 K/uL (1.8-7.7); NEUTROPHILS % (AUTO) 75.9 % (40.0-70.0); PLATELET COUNT (AUTO) 125 K/uL (130-430); RED BLOOD CELL COUNT(AUTO) 2.88 MIL/uL (4.2-6.2); RED CELL DISTRIBUTION WIDTH 16.4 % (9.0-15.0); WHITE BLOOD COUNT (AUTO) 7.3 K/uL (4.8-10.8)
[2023-09-14 07:11] LABS: ALBUMIN 2.8 g/dL (3.4-4.8); CALCIUM 8.2 mg/dL (8.4-11.0); CREATININE 0.81 mg/dL (0.55-1.30); POTASSIUM 3.8 mmol/L (3.5-5.1); TOTAL PROTEIN, SERUM 6.9 g/dL (6.4-8.3)
[2023-09-14 07:20] LABS: INR 1.4 (0.80-1.20)
[2023-09-14 08:00] VITALS: BP_SYST 110; PULSE 88; RESP 16; TEMP 98.1; O2SAT 95; O2SAT 96
[2023-09-14] MEDS: FOLIC ACID 1 MG TABLET PO SCH (08:12)
[2023-09-14] MEDS: THIAMINE HCL 100 MG TABLET PO SCH (08:12)
[2023-09-14 08:52] LABS: TOTAL BILIRUBIN 25.6 mg/dL (0.0-1.0)
[2023-09-14] MEDS: FUROSEMIDE 20 MG TABLET PO SCH (09:00)
[2023-09-14] MEDS: SPIRONOLACTONE 50 MG TABLET (ALDACTONE) PO SCH (11:09)
[2023-09-14 12:00] VITALS: BP_SYST 122; PULSE 92; RESP 17; TEMP 99; O2SAT 94
[2023-09-14 16:00] VITALS: BP_SYST 110; PULSE 88; RESP 16; TEMP 98; O2SAT 96
[2023-09-14 19:00] VITALS: BP_SYST 125; PULSE 85; RESP 18; TEMP 98; O2SAT 99
[2023-09-14 20:00] VITALS: BP_SYST 125; PULSE 85; RESP 18; TEMP 96; O2SAT 99
[2023-09-14] MEDS: LORazepam 2 MG/ML VIAL IVP PRN (23:00)
[2023-09-15] VITALS (8 sets, daily range): BP systolic 96–126; PULSE 73–100; RESP 15–20; TEMP 97–99.7; O2SAT 93–100
[2023-09-15 05:58] LABS: BASOPHILS # (AUTO) 0.1 K/uL (0.0-0.2); BASOPHILS % (AUTO) 0.7 % (0.0-2.0); EOSINOPHILS # (AUTO) 0.3 K/uL (0.0-0.4); EOSINOPHILS % (AUTO) 3.6 % (0.0-4.0); HEMATOCRIT 28.8 % (36-54); LYMPHOCYTES % (AUTO) 11.1 % (20.5-51.5); MEAN CORPUSCULAR HEMOGLOBIN 33 pg (27-31); MEAN CORPUSCULAR HGB CONC 35 % (32-36); MEAN CORPUSCULAR VOLUME 95 fL (79.0-98.0); MONOCYTES # (AUTO) 0.9 K/uL (0.0-1.0); MONOCYTES % (AUTO) 10.1 % (1.7-9.3); NEUTROPHILS # (AUTO) 6.7 K/uL (1.8-7.7); NEUTROPHILS % (AUTO) 74.5 % (40.0-70.0); PLATELET COUNT (AUTO) 156 K/uL (130-430); RED BLOOD CELL COUNT(AUTO) 3.04 MIL/uL (4.2-6.2); RED CELL DISTRIBUTION WIDTH 16.9 % (9.0-15.0)
[2023-09-15 06:43] LABS: CALCIUM 8.7 mg/dL (8.4-11.0); CREATININE 1.07 mg/dL (0.55-1.30); TOTAL PROTEIN, SERUM 7.5 g/dL (6.4-8.3)
[2023-09-15 07:48] LABS: TOTAL BILIRUBIN 32.5 mg/dL (0.0-1.0)
[2023-09-15 09:53] LABS: INR 1.6 (0.80-1.20)
[2023-09-16] VITALS: BP_SYST 114; PULSE 74; RESP 14; TEMP 98.3; O2SAT 96
[2023-09-16 01:05] LABS: AFP, TUMOR MARKER 3.5 ng/mL (0.0-8.4)
[2023-09-16 03:07] LABS: HEPATITIS A AB, IgM Negative (Negative); HEPATITIS B CORE AB, IgM Negative (Negative); HEPATITIS B SURFACE AG Negative (Negative)
[2023-09-16 04:02] VITALS: O2SAT 97
[2023-09-16 06:34] LABS: BASOPHILS # (AUTO) 0.1 K/uL (0.0-0.2); BASOPHILS % (AUTO) 0.8 % (0.0-2.0); EOSINOPHILS # (AUTO) 0.3 K/uL (0.0-0.4); EOSINOPHILS % (AUTO) 3.4 % (0.0-4.0); HEMOGLOBIN 10.7 g/dL (14.0-18.0); LYMPHOCYTES # (AUTO) 0.9 K/uL (1.0-5.5); LYMPHOCYTES % (AUTO) 9.9 % (20.5-51.5); MEAN CORPUSCULAR HEMOGLOBIN 33 pg (27-31); MEAN CORPUSCULAR HGB CONC 34 % (32-36); MEAN CORPUSCULAR VOLUME 96 fL (79.0-98.0); MONOCYTES % (AUTO) 10.2 % (1.7-9.3); NEUTROPHILS # (AUTO) 7.2 K/uL (1.8-7.7); NEUTROPHILS % (AUTO) 75.7 % (40.0-70.0); PLATELET COUNT (AUTO) 198 K/uL (130-430); RED BLOOD CELL COUNT(AUTO) 3.23 MIL/uL (4.2-6.2); RED CELL DISTRIBUTION WIDTH 17.2 % (9.0-15.0); WHITE BLOOD COUNT (AUTO) 9.5 K/uL (4.8-10.8)
[2023-09-16 07:34] LABS: ALBUMIN 3.2 g/dL (3.4-4.8); CALCIUM 8.8 mg/dL (8.4-11.0); CREATININE 1.17 mg/dL (0.55-1.30); POTASSIUM 4.1 mmol/L (3.5-5.1); TOTAL PROTEIN, SERUM 7.8 g/dL (6.4-8.3)
[2023-09-16 07:37] LABS: TOTAL BILIRUBIN 35.4 mg/dL (0.0-1.0)
[2023-09-16 07:59] LABS: INR 1.4 (0.80-1.20); PROTHROMBIN TIME 14.1 SECS (9.5-12.5)
[2023-09-16 08:00] VITALS: O2SAT 99
[2023-09-16 10:09] VITALS: BP_SYST 105; PULSE 105; RESP 18; TEMP 98.4; O2SAT 96
[2023-09-16] MEDS: prednisoLONE 15 MG/5 ML UDC PO SCH (10:46)
[2023-09-16 11:12] VITALS: BP_SYST 123; PULSE 93; RESP 16; TEMP 98.4; O2SAT 98
[2023-09-17 15:06] LABS: ANTI-SMOOTH MUSCLE AB 25 Units (0-19)
[2023-09-18 12:06] LABS: HEPATITIS C VIRUS AB Non Reactive (Non Reactive)
== END 2023-09-16 12:21 | DRG 432 ==
LOC: SED 20:48 → STU 09-13 00:53 → SMU 09-14 17:07
PROVIDERS: ADMIT Internal Medicine; ATTEND Internal Medicine
DX: K74.60 Unspecified cirrhosis of liver (principal); G92.8 Other toxic encephalopathy; E44.1 Mild protein-calorie malnutrition; Z59.00 Homelessness unspecified; R65.10 Systemic inflammatory response syndrome (SIRS) of non-infectious origin without acute organ dysfunction; T51.0X1A Toxic effect of ethanol, accidental (unintentional), initial encounter; K70.10 Alcoholic hepatitis without ascites; K42.9 Umbilical hernia without obstruction or gangrene; F10.129 Alcohol abuse with intoxication, unspecified; E87.6 Hypokalemia; D64.9 Anemia, unspecified; E80.6 Other disorders of bilirubin metabolism; F32.A Depression, unspecified; Z68.24 Body mass index [BMI] 24.0-24.9, adult; Z79.899 Other long term (current) drug therapy; Y92.9 Unspecified place or not applicable
CPT/HCPCS: 36415; 74250; 76700; 80053; 80074; 80307; 81000; 81001; 81015; 82105; 82140; 83516; 83690; 83735; 85025; 85610; 85730; 87086; 87210; 97116-GP; 97530-GP; 99291; C9113; G0378; G0482; J1200; J2060; J2270; J3411; J3475; J3480; J3490

== ENCOUNTER 2023-12-15 10:24 | Inpatient (IN) | payer OTHER, MEDICAID ==
[~2023-12-15] VITALS: Ht 162.6 cm; Wt 58.1 kg
[~2023-12-15 10:24] MED LIST changes: -FOLI-43 PO; -FURO-150 PO; -LACT10SO6; -MIDO5TAB4 PO; -OLAN2.5T3 PO; -PANT40TA45 PO; -SPIR25TA PO; -TRAZ-250 PO
[2023-12-15 10:52] VITALS: BP_SYST 109; PULSE 152; RESP 16; TEMP 98.3; O2SAT 95
[2023-12-15 11:27] LABS: EOSINOPHILS # (AUTO) 0.2 K/uL (0.0-0.4); EOSINOPHILS % (AUTO) 3.4 % (0.0-4.0); HEMATOCRIT 32.2 % (36-54); HEMOGLOBIN 10.7 g/dL (14.0-18.0); LYMPHOCYTES # (AUTO) 0.8 K/uL (1.0-5.5); LYMPHOCYTES % (AUTO) 17.6 % (20.5-51.5); MEAN CORPUSCULAR HEMOGLOBIN 32 pg (27-31); MEAN CORPUSCULAR HGB CONC 33 % (32-36); MEAN CORPUSCULAR VOLUME 95 fL (79.0-98.0); MONOCYTES # (AUTO) 0.3 K/uL (0.0-1.0); MONOCYTES % (AUTO) 6.9 % (1.7-9.3); NEUTROPHILS # (AUTO) 3.2 K/uL (1.8-7.7); NEUTROPHILS % (AUTO) 71.1 % (40.0-70.0); RED BLOOD CELL COUNT(AUTO) 3.39 MIL/uL (4.2-6.2); RED CELL DISTRIBUTION WIDTH 14.6 % (9.0-15.0); WHITE BLOOD COUNT (AUTO) 4.6 K/uL (4.8-10.8)
[2023-12-15 11:37] LABS: ALBUMIN 2.3 g/dL (3.4-4.8); BILIRUBIN,DIRECT 1.6 mg/dL (0.0-0.3); CALCIUM 7.8 mg/dL (8.4-11.0); CREATININE 0.97 mg/dL (0.55-1.30); POTASSIUM 4.8 mmol/L (3.5-5.1); TOTAL BILIRUBIN 3.3 mg/dL (0.0-1.0); TOTAL PROTEIN, SERUM 8.1 g/dL (6.4-8.3)
[2023-12-15 11:55] LABS: PLATELET COUNT (AUTO) 74 K/uL (130-430)
[2023-12-15] MEDS ORDERED: LORazepam 2 MG/ML VIAL IVP PRN (18:15)
[2023-12-15 18:45] VITALS: BP_SYST 115; PULSE 69; RESP 18; TEMP 98.2; O2SAT 98
[2023-12-15 20:00] VITALS: BP_SYST 110; PULSE 88; RESP 18; TEMP 98.8; O2SAT 98
[2023-12-15] MEDS ORDERED: THIAMINE HCL 200 MG/2 ML VIAL ONE (21:07)
[2023-12-15] MEDS: PROPRANOLOL HCL 10 MG TABLET (INDERAL) PO SCH (21:09)
[2023-12-15] MEDS: SPIRONOLACTONE 25 MG TABLET (ALDACTONE) PO SCH (21:10)
[2023-12-15] MEDS: THIAMINE HCL 100 MG in NS 50 ML IV ONE (21:11)
[2023-12-15 21:51] VITALS: BP_SYST 110; PULSE 88; RESP 18; TEMP 99; O2SAT 98
[2023-12-15] MEDS: FAMOTIDINE PF 20 MG/2 ML VIAL IVP ONE (23:11)
[2023-12-16] VITALS: BP_SYST 104; PULSE 70; RESP 18; TEMP 98.6; O2SAT 98
[2023-12-16 04:39] LABS: BASOPHILS % (AUTO) 1.1 % (0.0-2.0); EOSINOPHILS # (AUTO) 0.1 K/uL (0.0-0.4); EOSINOPHILS % (AUTO) 3.4 % (0.0-4.0); HEMATOCRIT 29.4 % (36-54); HEMOGLOBIN 9.9 g/dL (14.0-18.0); LYMPHOCYTES # (AUTO) 0.7 K/uL (1.0-5.5); LYMPHOCYTES % (AUTO) 15.8 % (20.5-51.5); MEAN CORPUSCULAR HEMOGLOBIN 32 pg (27-31); MEAN CORPUSCULAR HGB CONC 34 % (32-36); MEAN CORPUSCULAR VOLUME 94 fL (79.0-98.0); MONOCYTES # (AUTO) 0.3 K/uL (0.0-1.0); MONOCYTES % (AUTO) 7.6 % (1.7-9.3); NEUTROPHILS % (AUTO) 72.1 % (40.0-70.0); PLATELET COUNT (AUTO) 56 K/uL (130-430); RED BLOOD CELL COUNT(AUTO) 3.11 MIL/uL (4.2-6.2); RED CELL DISTRIBUTION WIDTH 14.5 % (9.0-15.0); WHITE BLOOD COUNT (AUTO) 4.1 K/uL (4.8-10.8)
[2023-12-16 04:51] LABS: INR 1.6 (0.80-1.20); PROTHROMBIN TIME 16.1 SECS (9.5-12.5)
[2023-12-16 05:32] LABS: ALBUMIN 1.8 g/dL (3.4-4.8); CALCIUM 7.7 mg/dL (8.4-11.0); CREATININE 0.76 mg/dL (0.55-1.30); TOTAL BILIRUBIN 3.5 mg/dL (0.0-1.0); TOTAL PROTEIN, SERUM 6.5 g/dL (6.4-8.3)
[2023-12-16 05:42] LABS: POTASSIUM 2.9 mmol/L (3.5-5.1)
[2023-12-16] MEDS ORDERED: NALOXONE HCL 0.4 MG/ML AMP (NARCAN) IVP PRN (05:45)
[2023-12-16] MEDS: HYDROcodone/ACETAMIN 5-325 MG TAB (NORCO/ VICODIN) PO PRN (06:12)
[2023-12-16 08:44] VITALS: BP_SYST 121; PULSE 60; RESP 16; TEMP 98; O2SAT 99
[2023-12-16] MEDS: THIAMINE HCL 100 MG TABLET PO SCH (08:48)
[2023-12-16] MEDS: MULTIVITS,CA,MINERALS/IRON/FA 1 TABLET PO SCH (08:48)
[2023-12-16] MEDS: FOLIC ACID 1 MG TABLET PO SCH (08:49)
[2023-12-16] MEDS: FAMOTIDINE PF 20 MG/2 ML VIAL IVP SCH (08:50)
[2023-12-16 12:26] VITALS: BP_SYST 116; PULSE 56; RESP 17; TEMP 98.2; O2SAT 98
[2023-12-16] MEDS: FUROSEMIDE 40 MG TABLET PO SCH (13:37)
[2023-12-16] MEDS: FUROSEMIDE 40 MG TABLET ONE (13:40)
[2023-12-16 14:33] VITALS: O2SAT 99
[2023-12-16 16:43] VITALS: BP_SYST 98; PULSE 61; RESP 14; TEMP 97.2; O2SAT 98
[2023-12-16 20:00] VITALS: BP_SYST 106; PULSE 68; RESP 18; TEMP 98; O2SAT 98
[2023-12-16] MEDS: POTASSIUM CHLORIDE 20 MEQ TABLET.ER PO ONE ×2 (20:48→22:56)
[2023-12-16] MEDS: PHYTONADIONE 10 MG in NS 50 ML IV ONE (20:49)
[2023-12-16] MEDS: POTASSIUM CHLORIDE 20 MEQ TABLET.ER PO SCH (21:00)
[2023-12-17] VITALS: BP_SYST 110; PULSE 74; RESP 18; TEMP 98.5; O2SAT 98
[2023-12-17 04:46] LABS: INR 1.7 (0.80-1.20); PROTHROMBIN TIME 16.7 SECS (9.5-12.5)
[2023-12-17 04:50] LABS: BASOPHILS # (AUTO) 0.1 K/uL (0.0-0.2); EOSINOPHILS # (AUTO) 0.2 K/uL (0.0-0.4); EOSINOPHILS % (AUTO) 3.7 % (0.0-4.0); HEMATOCRIT 35.8 % (36-54); LYMPHOCYTES # (AUTO) 0.8 K/uL (1.0-5.5); LYMPHOCYTES % (AUTO) 13.2 % (20.5-51.5); MEAN CORPUSCULAR HEMOGLOBIN 32 pg (27-31); MEAN CORPUSCULAR HGB CONC 33 % (32-36); MEAN CORPUSCULAR VOLUME 95 fL (79.0-98.0); MONOCYTES # (AUTO) 0.5 K/uL (0.0-1.0); MONOCYTES % (AUTO) 8.4 % (1.7-9.3); NEUTROPHILS # (AUTO) 4.4 K/uL (1.8-7.7); NEUTROPHILS % (AUTO) 73.7 % (40.0-70.0); PLATELET COUNT (AUTO) 96 K/uL (130-430); RED BLOOD CELL COUNT(AUTO) 3.77 MIL/uL (4.2-6.2); RED CELL DISTRIBUTION WIDTH 15.1 % (9.0-15.0)
[2023-12-17 05:12] LABS: ALBUMIN 2.2 g/dL (3.4-4.8); CALCIUM 8.5 mg/dL (8.4-11.0); CREATININE 1.05 mg/dL (0.55-1.30); TOTAL BILIRUBIN 5.8 mg/dL (0.0-1.0); TOTAL PROTEIN, SERUM 7.7 g/dL (6.4-8.3)
[2023-12-17 09:30] VITALS: BP_SYST 100; PULSE 84; RESP 20; TEMP 97.3; O2SAT 100
[2023-12-17] MEDS: DIPHENHYDRAMINE HCL 50 MG CAPSULE PO PRN (09:58)
[2023-12-17] MEDS: SPIRONOLACTONE 50 MG TABLET (ALDACTONE) PO SCH (10:00)
[2023-12-17] MEDS ORDERED: MAGNESIUM SULFATE 50 ML IV ONE (13:00)
[2023-12-17] MEDS ORDERED: MAGNESIUM OXIDE 400 MG TABLET PO SCH (21:00)
== END 2023-12-17 16:50 | disposition left against medical advice (07) | DRG 432 ==
LOC: SED 10:24 → SMU 12:58
PROVIDERS: ADMIT Internal Medicine; ATTEND Internal Medicine
PROC: 0W9G3ZZ Drainage of Peritoneal Cavity, Percutaneous Approach (ICD-10-PCS; principal; 2023-12-15)
PROC: 0W9G3ZZ Drainage of Peritoneal Cavity, Percutaneous Approach (ICD-10-PCS; 2023-12-17)
DX: K70.31 Alcoholic cirrhosis of liver with ascites (principal); E43 Unspecified severe protein-calorie malnutrition; K85.20 Alcohol induced acute pancreatitis without necrosis or infection; D61.818 Other pancytopenia; Z59.00 Homelessness unspecified; E80.6 Other disorders of bilirubin metabolism; F10.129 Alcohol abuse with intoxication, unspecified; E87.6 Hypokalemia; K42.9 Umbilical hernia without obstruction or gangrene; F32.A Depression, unspecified; Z53.29 Procedure and treatment not carried out because of patient's decision for other reasons; Z79.899 Other long term (current) drug therapy; Z68.22 Body mass index [BMI] 22.0-22.9, adult
CPT/HCPCS: 36415; 49083; 71045; 76700; 76870; 80048; 80053; 80061; 80076; 83690; 83735; 83880; 85025; 85610; 85730; 93005; 97112-GP; 97116-GP; 99285; J3411; J3430; J3490; Q0163

== ENCOUNTER 2024-01-18 10:05 | Emergency (ER) | payer OTHER, MEDICAID ==
[~2024-01-18] VITALS: Ht 162.6 cm; Wt 68.0 kg
[2024-01-18 10:05] VITALS: BP_SYST 101; PULSE 104; RESP 19; TEMP 98.2; O2SAT 96
[2024-01-18 10:36] LABS: BASOPHILS # (AUTO) 0.1 K/uL (0.0-0.2); BASOPHILS % (AUTO) 0.9 % (0.0-2.0); EOSINOPHILS # (AUTO) 0.1 K/uL (0.0-0.4); EOSINOPHILS % (AUTO) 1.2 % (0.0-4.0); HEMATOCRIT 31.2 % (36-54); HEMOGLOBIN 10.3 g/dL (14.0-18.0); LYMPHOCYTES % (AUTO) 13.5 % (20.5-51.5); MEAN CORPUSCULAR HEMOGLOBIN 34 pg (27-31); MEAN CORPUSCULAR HGB CONC 33 % (32-36); MEAN CORPUSCULAR VOLUME 102 fL (79.0-98.0); MONOCYTES # (AUTO) 0.5 K/uL (0.0-1.0); MONOCYTES % (AUTO) 6.7 % (1.7-9.3); NEUTROPHILS # (AUTO) 5.6 K/uL (1.8-7.7); NEUTROPHILS % (AUTO) 77.7 % (40.0-70.0); PLATELET COUNT (AUTO) 105 K/uL (130-430); RED BLOOD CELL COUNT(AUTO) 3.06 MIL/uL (4.2-6.2); RED CELL DISTRIBUTION WIDTH 15.8 % (9.0-15.0); WHITE BLOOD COUNT (AUTO) 7.2 K/uL (4.8-10.8)
[2024-01-18 11:09] LABS: INR 1.4 (0.80-1.20); PROTHROMBIN TIME 14.4 SECS (9.5-12.5)
[2024-01-18 11:11] LABS: ALBUMIN 2.2 g/dL (3.4-4.8); BILIRUBIN,DIRECT 1.8 mg/dL (0.0-0.3); CALCIUM 7.8 mg/dL (8.4-11.0); CREATININE 0.91 mg/dL (0.55-1.30); POTASSIUM 3.1 mmol/L (3.5-5.1); TOTAL BILIRUBIN 2.8 mg/dL (0.0-1.0); TOTAL PROTEIN, SERUM 7.5 g/dL (6.4-8.3)
[2024-01-18 12:44] VITALS: BP_SYST 101; PULSE 104; RESP 19; TEMP 98.2; O2SAT 96
== END 2024-01-18 13:00 | disposition home or self-care (01) ==
LOC: SED 10:05
DX: K70.31 Alcoholic cirrhosis of liver with ascites (principal); F10.10 Alcohol abuse, uncomplicated; J45.909 Unspecified asthma, uncomplicated; Z79.899 Other long term (current) drug therapy; Y90.9 Presence of alcohol in blood, level not specified
CPT/HCPCS: 36415; 49083; 76705; 80048; 80076; 82150; 83605; 83690; 85025; 85610; 85730; 99285

== ENCOUNTER 2024-01-29 19:58 | Inpatient (IN) | payer OTHER, MEDICAID ==
[~2024-01-29] VITALS: Ht 162.6 cm; Wt 79.8 kg
[2024-01-29 20:06] VITALS: BP_SYST 107; PULSE 99; RESP 16; TEMP 97.2; O2SAT 99
[2024-01-29 22:19] LABS: BASOPHILS # (AUTO) 0.1 K/uL (0.0-0.2); BASOPHILS % (AUTO) 0.9 % (0.0-2.0); EOSINOPHILS # (AUTO) 0.1 K/uL (0.0-0.4); EOSINOPHILS % (AUTO) 1.8 % (0.0-4.0); HEMATOCRIT 25.2 % (36-54); LYMPHOCYTES # (AUTO) 1.3 K/uL (1.0-5.5); LYMPHOCYTES % (AUTO) 17.1 % (20.5-51.5); MEAN CORPUSCULAR HEMOGLOBIN 35 pg (27-31); MEAN CORPUSCULAR HGB CONC 36 % (32-36); MEAN CORPUSCULAR VOLUME 99 fL (79.0-98.0); MONOCYTES # (AUTO) 0.5 K/uL (0.0-1.0); NEUTROPHILS # (AUTO) 5.6 K/uL (1.8-7.7); NEUTROPHILS % (AUTO) 73.2 % (40.0-70.0); PLATELET COUNT (AUTO) 94 K/uL (130-430); RED BLOOD CELL COUNT(AUTO) 2.56 MIL/uL (4.2-6.2); RED CELL DISTRIBUTION WIDTH 14.1 % (9.0-15.0); WHITE BLOOD COUNT (AUTO) 7.6 K/uL (4.8-10.8)
[2024-01-29 22:38] LABS: BILIRUBIN,DIRECT 2.4 mg/dL (0.0-0.3); CALCIUM 7.3 mg/dL (8.4-11.0); CREATININE 0.98 mg/dL (0.55-1.30); TOTAL BILIRUBIN 4.3 mg/dL (0.0-1.0); TOTAL PROTEIN, SERUM 6.8 g/dL (6.4-8.3)
[2024-01-29 22:55] LABS: POTASSIUM 2.7 mmol/L (3.5-5.1)
[2024-01-29] MEDS ORDERED: IBUPROFEN 200 MG TABLET PO PRN (23:15)
[2024-01-29] MEDS: HYDROcodone/ACETAMIN 5-325 MG TAB (NORCO/ VICODIN) PO PRN (23:43)
[2024-01-29] MEDS: KCL 20 mEq in 100 mL (PREMIX) 100 ML IV ONE (23:43)
[2024-01-29] MEDS: POTASSIUM CHLORIDE 20 MEQ TABLET.ER PO ONE (23:43)
[2024-01-30] MEDS: ONDANSETRON HCL 4 MG/2 ML VIAL IVP PRN (00:27)
[2024-01-30 00:37] LABS: INR 1.5 (0.80-1.20); PROTHROMBIN TIME 15.5 SECS (9.5-12.5)
[2024-01-30] MEDS: MORPHINE 2 MG/ML INJ. SYRINGE IVP PRN ×2 (01:25→14:05)
[2024-01-30 01:41] VITALS: BP_SYST 109; PULSE 94; RESP 20; TEMP 97.7; O2SAT 96
[2024-01-30] MEDS: PANTOPRAZOLE SODIUM 40 MG/VIAL (PROTONIX) IVP ONE (02:17)
[2024-01-30] MEDS: METOCLOPRAMIDE HCL 10 MG/2 ML VIAL IVP PRN (02:18)
[2024-01-30] MEDS: NACL 0.9% 1,000 ML IV SCH (02:24)
[2024-01-30] MEDS ORDERED: cefTRIAXone 1 GM VIAL ONE (03:27)
[2024-01-30] MEDS: LORazepam 1 MG TABLET PO PRN (03:37)
[2024-01-30] MEDS: cefTRIAXone 2 GM in D5W 50 ML IV SCH (03:55)
[2024-01-30] MEDS: OCTREOTIDE ACETATE 500 MCG in NS 99.5 ML IV SCH (04:27)
[2024-01-30 05:36] LABS: BASOPHILS % (AUTO) 0.4 % (0.0-2.0); EOSINOPHILS % (AUTO) 0.3 % (0.0-4.0); HEMATOCRIT 29.4 % (36-54); HEMOGLOBIN 9.9 g/dL (14.0-18.0); LYMPHOCYTES % (AUTO) 11.2 % (20.5-51.5); MEAN CORPUSCULAR HEMOGLOBIN 34 pg (27-31); MEAN CORPUSCULAR HGB CONC 34 % (32-36); MEAN CORPUSCULAR VOLUME 102 fL (79.0-98.0); MONOCYTES # (AUTO) 0.6 K/uL (0.0-1.0); MONOCYTES % (AUTO) 6.8 % (1.7-9.3); NEUTROPHILS # (AUTO) 6.9 K/uL (1.8-7.7); NEUTROPHILS % (AUTO) 81.3 % (40.0-70.0); PLATELET COUNT (AUTO) 121 K/uL (130-430); RED BLOOD CELL COUNT(AUTO) 2.89 MIL/uL (4.2-6.2); RED CELL DISTRIBUTION WIDTH 13.9 % (9.0-15.0); WHITE BLOOD COUNT (AUTO) 8.5 K/uL (4.8-10.8)
[2024-01-30 06:04] LABS: CALCIUM 7.4 mg/dL (8.4-11.0); CREATININE 1.02 mg/dL (0.55-1.30); POTASSIUM 3.4 mmol/L (3.5-5.1)
[2024-01-30 07:50] VITALS: BP_SYST 101; PULSE 102; RESP 18; TEMP 98.8; O2SAT 96
[2024-01-30 08:45] VITALS: O2SAT 98
[2024-01-30] MEDS: PANTOPRAZOLE SODIUM 40 MG/VIAL (PROTONIX) IVP SCH (09:26)
[2024-01-30 12:05] VITALS: BP_SYST 90; PULSE 99; RESP 15; TEMP 97.8; O2SAT 97
[2024-01-30] MEDS ORDERED: MORPHINE 2 MG/ML INJ. SYRINGE IVP PRN (13:30)
[2024-01-30 14:25] LABS: HEMATOCRIT 26.7 % (36-54); MEAN CORPUSCULAR HEMOGLOBIN 34 pg (27-31); MEAN CORPUSCULAR HGB CONC 34 % (32-36); MEAN CORPUSCULAR VOLUME 102 fL (79.0-98.0); PLATELET COUNT (AUTO) 91 K/uL (130-430); RED BLOOD CELL COUNT(AUTO) 2.62 MIL/uL (4.2-6.2)
[2024-01-30] MEDS ORDERED: MULTIVITAMIN/IRON/FOLIC ACID 1 TAB TABLET GT SCH (14:45)
[2024-01-30] MEDS ORDERED: RIFAXIMIN 550 MG TABLET PO ONE (15:00)
[2024-01-30] MEDS ORDERED: MULTIVITAMIN/IRON/FOLIC ACID 1 TAB TABLET GT ONE (15:00)
[2024-01-30] MEDS ORDERED: FUROSEMIDE 40 MG/4 ML VIAL IVP ONE (15:15)
[2024-01-30] MEDS ORDERED: DIAZEPAM 10 MG/2 ML DISP.SYRIN IVP ONE (15:15)
[2024-01-30] MEDS: FUROSEMIDE 40 MG TABLET PO ONE (16:18)
[2024-01-30] MEDS: MULTIVITAMINS TAB 1 TABLET GT ONE (16:18)
[2024-01-30] MEDS: NEPHROVITE, (FOLIC ACID/VITAMIN B COMP W-C 1 TAB) PO ONE (16:18)
[2024-01-30] MEDS: LACTULOSE 20 GM/30 ML UDC PO ONE (16:19)
[2024-01-30] MEDS: SPIRONOLACTONE 50 MG TABLET (ALDACTONE) PO ONE (16:23)
[2024-01-30] MEDS: THIAMINE HCL 100 MG TABLET PO ONE (16:23)
[2024-01-30 16:34] VITALS: BP_SYST 112; PULSE 95; RESP 14; TEMP 98.8; O2SAT 96
[2024-01-30] MEDS: DIAZEPAM 2 MG TABLET (VALIUM) PO ONE (18:17)
[2024-01-30 19:00] VITALS: O2SAT 98
[2024-01-30] MEDS ORDERED: RIFAXIMIN 550 MG TABLET PO SCH (21:00)
[2024-01-30] MEDS: MIRTAZAPINE 15 MG TABLET PO SCH (21:06)
[2024-01-30] MEDS: LACTULOSE 20 GM/30 ML UDC PO SCH (21:11)
[2024-01-31 00:18] VITALS: BP_SYST 113; PULSE 98; RESP 16; TEMP 97.4; O2SAT 95
[2024-01-31 00:19] LABS: HEMATOCRIT 25.5 % (36-54); HEMOGLOBIN 8.7 g/dL (14.0-18.0); MEAN CORPUSCULAR HEMOGLOBIN 35 pg (27-31); MEAN CORPUSCULAR VOLUME 101 fL (79.0-98.0); RED BLOOD CELL COUNT(AUTO) 2.52 MIL/uL (4.2-6.2); WHITE BLOOD COUNT (AUTO) 6.6 K/uL (4.8-10.8)
[2024-01-31 00:20] LABS: MEAN CORPUSCULAR HGB CONC 34 % (32-36); PLATELET COUNT (AUTO) 90 K/uL (130-430); RED CELL DISTRIBUTION WIDTH 14.4 % (9.0-15.0)
[2024-01-31 05:22] LABS: BASOPHILS # (AUTO) 0.1 K/uL (0.0-0.2); BASOPHILS % (AUTO) 0.9 % (0.0-2.0); CALCIUM 7.4 mg/dL (8.4-11.0); CREATININE 1.13 mg/dL (0.55-1.30); EOSINOPHILS # (AUTO) 0.1 K/uL (0.0-0.4); HEMATOCRIT 24.9 % (36-54); HEMOGLOBIN 8.4 g/dL (14.0-18.0); LYMPHOCYTES # (AUTO) 1.6 K/uL (1.0-5.5); MEAN CORPUSCULAR HEMOGLOBIN 34 pg (27-31); MEAN CORPUSCULAR HGB CONC 34 % (32-36); MEAN CORPUSCULAR VOLUME 102 fL (79.0-98.0); MONOCYTES # (AUTO) 0.5 K/uL (0.0-1.0); MONOCYTES % (AUTO) 7.1 % (1.7-9.3); NEUTROPHILS # (AUTO) 4.3 K/uL (1.8-7.7); PLATELET COUNT (AUTO) 91 K/uL (130-430); RED BLOOD CELL COUNT(AUTO) 2.45 MIL/uL (4.2-6.2); RED CELL DISTRIBUTION WIDTH 13.9 % (9.0-15.0); WHITE BLOOD COUNT (AUTO) 6.5 K/uL (4.8-10.8)
[2024-01-31 05:51] LABS: POTASSIUM 2.9 mmol/L (3.5-5.1)
[2024-01-31 08:08] VITALS: BP_SYST 127; PULSE 113; RESP 12; TEMP 98.8; O2SAT 98
[2024-01-31] MEDS: THIAMINE HCL 100 MG TABLET PO SCH (08:45)
[2024-01-31] MEDS: DIAZEPAM 2 MG TABLET (VALIUM) PO SCH (08:46)
[2024-01-31] MEDS: SPIRONOLACTONE 50 MG TABLET (ALDACTONE) PO SCH (08:49)
[2024-01-31] MEDS: MULTIVITAMINS TAB 1 TABLET GT SCH (08:49)
[2024-01-31] MEDS: NEPHROVITE, (FOLIC ACID/VITAMIN B COMP W-C 1 TAB) PO SCH (08:49)
[2024-01-31] MEDS: FUROSEMIDE 40 MG TABLET PO SCH (08:50)
[2024-01-31] MEDS ORDERED: FUROSEMIDE 40 MG/4 ML VIAL IVP SCH (09:00)
[2024-01-31 09:40] VITALS: O2SAT 98
[2024-01-31] MEDS: POTASSIUM CHLORIDE 20 MEQ TABLET.ER PO ONE (14:26)
[2024-01-31 19:00] VITALS: BP_SYST 101; PULSE 111; RESP 16; TEMP 98.1; O2SAT 96; O2SAT 98
[2024-01-31 20:00] VITALS: BP_SYST 101; PULSE 111; RESP 16; TEMP 98.1; O2SAT 96
[2024-02-01] VITALS: BP_SYST 112; PULSE 98; RESP 16; TEMP 97.1; O2SAT 98
[2024-02-01 08:00] VITALS: O2SAT 97
[2024-02-01 09:06] LABS: INR 1.8 (0.80-1.20); PROTHROMBIN TIME 18.4 SECS (9.5-12.5)
[2024-02-01 11:10] LABS: BASOPHILS % (AUTO) 0.5 % (0.0-2.0); EOSINOPHILS # (AUTO) 0.1 K/uL (0.0-0.4); EOSINOPHILS % (AUTO) 1.1 % (0.0-4.0); HEMATOCRIT 28.8 % (36-54); HEMOGLOBIN 9.6 g/dL (14.0-18.0); LYMPHOCYTES # (AUTO) 0.9 K/uL (1.0-5.5); LYMPHOCYTES % (AUTO) 9.8 % (20.5-51.5); MEAN CORPUSCULAR HEMOGLOBIN 34 pg (27-31); MEAN CORPUSCULAR HGB CONC 33 % (32-36); MEAN CORPUSCULAR VOLUME 102 fL (79.0-98.0); MONOCYTES # (AUTO) 0.6 K/uL (0.0-1.0); MONOCYTES % (AUTO) 6.8 % (1.7-9.3); NEUTROPHILS # (AUTO) 7.8 K/uL (1.8-7.7); NEUTROPHILS % (AUTO) 81.8 % (40.0-70.0); PLATELET COUNT (AUTO) 93 K/uL (130-430); RED BLOOD CELL COUNT(AUTO) 2.82 MIL/uL (4.2-6.2); RED CELL DISTRIBUTION WIDTH 14.2 % (9.0-15.0); WHITE BLOOD COUNT (AUTO) 9.6 K/uL (4.8-10.8)
[2024-02-01 11:23] LABS: ALBUMIN 2.1 g/dL (3.4-4.8); CALCIUM 7.7 mg/dL (8.4-11.0); CREATININE 1.45 mg/dL (0.55-1.30); TOTAL BILIRUBIN 4.2 mg/dL (0.0-1.0); TOTAL PROTEIN, SERUM 6.9 g/dL (6.4-8.3)
[2024-02-01 11:36] LABS: POTASSIUM 2.8 mmol/L (3.5-5.1)
[2024-02-01 12:35] VITALS: BP_SYST 108; PULSE 114; RESP 16; TEMP 97.5; O2SAT 97
[2024-02-01] MEDS ORDERED: KCL 20 mEq in NS 1000 mL 1,000 ML IV SCH (13:00)
[2024-02-01] MEDS: KCL 20 mEq in NS 1000 mL 1,000 ML IV SCH (15:24)
[2024-02-01] MEDS: RIFAXIMIN 550 MG TABLET PO ONE (15:46)
[2024-02-01] MEDS: LACTULOSE 20 GM/30 ML UDC PO SCH (15:47)
[2024-02-01] MEDS: POTASSIUM CHLORIDE 20 MEQ/PKT PACKET PO ONE (15:47)
[2024-02-01] MEDS: ALBUMIN HUMAN 25% 50 ML IV ONE ×2 (16:19→17:51)
[2024-02-01 16:32] VITALS: BP_SYST 98; PULSE 116; RESP 16; TEMP 98.1; O2SAT 98
[2024-02-01 20:00] VITALS: BP_SYST 98; PULSE 125; RESP 20; TEMP 97.5
[2024-02-01] MEDS ORDERED: DIAZEPAM 2 MG TABLET (VALIUM) PO SCH (21:00)
[2024-02-01] MEDS: RIFAXIMIN 550 MG TABLET PO SCH (21:20)
[2024-02-01 22:28] LABS: BF APPEARANCE UNSPUN CLEAR (CLEAR); BODY FLUID COLOR YELLOW (LT YELLOW); BODY FLUID TOTAL VOLUME 9900 mL; NEUTROPHIL, BODY FLUID 100 %; RBC, BODY FLUID 98 /uL; SOURCE/TYPE ,BODY FLUID PARACENTESIS; WBC, BODY FLUID 6 /uL
[2024-02-02] VITALS: BP_SYST 92; PULSE 111; TEMP 99.1; O2SAT 16
[2024-02-02 00:06] LABS: HEPATITIS A AB, IgM Negative (Negative); HEPATITIS B CORE AB, IgM Negative (Negative); HEPATITIS B SURFACE AG Negative (Negative); HEPATITIS C VIRUS AB Non Reactive (Non Reactive)
[2024-02-02 02:44] VITALS: O2SAT 100
[2024-02-02 08:00] VITALS: BP_SYST 83; PULSE 83; RESP 16; TEMP 97.4; O2SAT 99
[2024-02-02 08:54] LABS: BODY FLUID GLUCOSE 145 mg/dL
[2024-02-02 09:57] LABS: BASOPHILS % (AUTO) 0.4 % (0.0-2.0); EOSINOPHILS # (AUTO) 0.1 K/uL (0.0-0.4); EOSINOPHILS % (AUTO) 1.8 % (0.0-4.0); HEMATOCRIT 23.9 % (36-54); HEMOGLOBIN 7.9 g/dL (14.0-18.0); LYMPHOCYTES # (AUTO) 0.9 K/uL (1.0-5.5); LYMPHOCYTES % (AUTO) 12.5 % (20.5-51.5); MEAN CORPUSCULAR HEMOGLOBIN 34 pg (27-31); MEAN CORPUSCULAR HGB CONC 33 % (32-36); MEAN CORPUSCULAR VOLUME 103 fL (79.0-98.0); MONOCYTES # (AUTO) 0.6 K/uL (0.0-1.0); MONOCYTES % (AUTO) 8.2 % (1.7-9.3); NEUTROPHILS # (AUTO) 5.6 K/uL (1.8-7.7); NEUTROPHILS % (AUTO) 77.1 % (40.0-70.0); PLATELET COUNT (AUTO) 75 K/uL (130-430); RED BLOOD CELL COUNT(AUTO) 2.32 MIL/uL (4.2-6.2); RED CELL DISTRIBUTION WIDTH 14.1 % (9.0-15.0); WHITE BLOOD COUNT (AUTO) 7.3 K/uL (4.8-10.8)
[2024-02-02 10:05] LABS: ALBUMIN 1.8 g/dL (3.4-4.8); CALCIUM 7.1 mg/dL (8.4-11.0); CREATININE 1.25 mg/dL (0.55-1.30); POTASSIUM 3.1 mmol/L (3.5-5.1); TOTAL BILIRUBIN 3.2 mg/dL (0.0-1.0); TOTAL PROTEIN, SERUM 5.6 g/dL (6.4-8.3)
[2024-02-02] MEDS: MIDODRINE HCL 5 MG TABLET (PROAMATINE) PO ONE (10:05)
[2024-02-02] MEDS: ALBUMIN HUMAN 25% 50 ML IV ONE ×2 (11:20)
[2024-02-02 12:00] VITALS: BP_SYST 85; PULSE 101; RESP 18; TEMP 97.4
[2024-02-02] MEDS: MIDODRINE HCL 5 MG TABLET (PROAMATINE) PO SCH (15:51)
[2024-02-02] MEDS: POTASSIUM CHLORIDE 20 MEQ/PKT PACKET PO ONE (15:51)
[2024-02-02 16:00] VITALS: BP_SYST 84; PULSE 105; RESP 16; TEMP 97.8
[2024-02-02 20:00] VITALS: BP_SYST 89; PULSE 81; RESP 18; TEMP 98.6; O2SAT 98
[2024-02-02] MEDS: chlordiazePOXIDE HCL 25 MG CAPSULE PO SCH (20:41)
[2024-02-03 00:38] VITALS: BP_SYST 91; PULSE 83; RESP 18; TEMP 98.5; O2SAT 100
[2024-02-03 04:38] LABS: BASOPHILS # (AUTO) 0.1 K/uL (0.0-0.2); BASOPHILS % (AUTO) 0.8 % (0.0-2.0); EOSINOPHILS # (AUTO) 0.3 K/uL (0.0-0.4); EOSINOPHILS % (AUTO) 3.4 % (0.0-4.0); HEMOGLOBIN 7.4 g/dL (14.0-18.0); LYMPHOCYTES # (AUTO) 1.7 K/uL (1.0-5.5); LYMPHOCYTES % (AUTO) 19.1 % (20.5-51.5); MEAN CORPUSCULAR HEMOGLOBIN 35 pg (27-31); MEAN CORPUSCULAR HGB CONC 34 % (32-36); MEAN CORPUSCULAR VOLUME 102 fL (79.0-98.0); MONOCYTES % (AUTO) 11.3 % (1.7-9.3); NEUTROPHILS # (AUTO) 5.7 K/uL (1.8-7.7); NEUTROPHILS % (AUTO) 65.4 % (40.0-70.0); PLATELET COUNT (AUTO) 82 K/uL (130-430); RED BLOOD CELL COUNT(AUTO) 2.15 MIL/uL (4.2-6.2); RED CELL DISTRIBUTION WIDTH 14.5 % (9.0-15.0); WHITE BLOOD COUNT (AUTO) 8.7 K/uL (4.8-10.8)
[2024-02-03 05:44] LABS: CREATININE 1.24 mg/dL (0.55-1.30); POTASSIUM 4.2 mmol/L (3.5-5.1)
[2024-02-03 07:58] LABS: CALCIUM 6.9 mg/dL (8.4-11.0)
[2024-02-03 08:00] VITALS: O2SAT 99
[2024-02-03 08:11] LABS: INR 2.2 (0.80-1.20)
[2024-02-03 09:07] LABS: CHLAMYDIA AB, IgG 0.93 ratio (0.00-0.90)
[2024-02-03 11:05] VITALS: BP_SYST 95; PULSE 81; RESP 18; TEMP 98.3; O2SAT 100
[2024-02-03 16:04] VITALS: BP_SYST 93; PULSE 83; RESP 18; TEMP 99.1; O2SAT 95
[2024-02-03] MEDS: MIDODRINE HCL 5 MG TABLET (PROAMATINE) PO SCH (17:57)
[2024-02-03 20:00] VITALS: BP_SYST 87; PULSE 98; RESP 18; TEMP 98; O2SAT 97
[2024-02-03] MEDS: ARIPiprazole 5 MG TAB PO SCH (20:58)
[2024-02-04] VITALS: BP_SYST 90; PULSE 88; RESP 18; TEMP 98; O2SAT 98
[2024-02-04] MEDS: LORazepam 2 MG/ML VIAL IVP PRN (03:37)
[2024-02-04 05:08] LABS: INR 1.9 (0.80-1.20); PROTHROMBIN TIME 19.5 SECS (9.5-12.5)
[2024-02-04 05:30] LABS: BASOPHILS # (AUTO) 0.1 K/uL (0.0-0.2); BASOPHILS % (AUTO) 1.1 % (0.0-2.0); EOSINOPHILS # (AUTO) 0.5 K/uL (0.0-0.4); EOSINOPHILS % (AUTO) 4.6 % (0.0-4.0); HEMATOCRIT 23.7 % (36-54); HEMOGLOBIN 7.9 g/dL (14.0-18.0); LYMPHOCYTES # (AUTO) 1.2 K/uL (1.0-5.5); LYMPHOCYTES % (AUTO) 12.6 % (20.5-51.5); MEAN CORPUSCULAR HEMOGLOBIN 35 pg (27-31); MEAN CORPUSCULAR HGB CONC 33 % (32-36); MEAN CORPUSCULAR VOLUME 104 fL (79.0-98.0); MONOCYTES # (AUTO) 1.2 K/uL (0.0-1.0); MONOCYTES % (AUTO) 12.2 % (1.7-9.3); NEUTROPHILS # (AUTO) 6.8 K/uL (1.8-7.7); NEUTROPHILS % (AUTO) 69.5 % (40.0-70.0); PLATELET COUNT (AUTO) 100 K/uL (130-430); RED CELL DISTRIBUTION WIDTH 15.4 % (9.0-15.0); WHITE BLOOD COUNT (AUTO) 9.8 K/uL (4.8-10.8)
[2024-02-04 05:49] LABS: ALBUMIN 1.9 g/dL (3.4-4.8); CREATININE 1.18 mg/dL (0.55-1.30); TOTAL BILIRUBIN 2.2 mg/dL (0.0-1.0); TOTAL PROTEIN, SERUM 5.4 g/dL (6.4-8.3)
[2024-02-04 08:00] VITALS: O2SAT 97
[2024-02-04 08:19] VITALS: BP_SYST 98; PULSE 100; RESP 18; TEMP 98.9; O2SAT 99
[2024-02-04] MEDS: FUROSEMIDE 40 MG/4 ML VIAL IVP ONE (11:59)
[2024-02-04 12:30] VITALS: BP_SYST 108; PULSE 100; RESP 18; TEMP 98.4
[2024-02-04] MEDS: ALBUMIN HUMAN 25% 50 ML IV SCH (15:28)
[2024-02-04 20:00] VITALS: BP_SYST 101; PULSE 100; RESP 18; TEMP 98.3; O2SAT 100
[2024-02-04 21:02] LABS: BODY FLUID GLUCOSE 115 mg/dL
[2024-02-04 23:24] LABS: APPEARANCE,SPUN,BODY FLUID CLEAR (CLEAR); BF APPEARANCE UNSPUN SLIGHTLY HAZY (CLEAR); BODY FLUID COLOR YELLOW (LT YELLOW); BODY FLUID SOURCE/ TYPE ASCITES; BODY FLUID TOTAL VOLUME 6475 mL; SOURCE/TYPE ,BODY FLUID ASCITES
[2024-02-04 23:30] LABS: RBC, BODY FLUID 166 /uL; WBC, BODY FLUID 36 /uL
[2024-02-04 23:41] LABS: EOSINOPHIL, BODY FLUID 1 %; LYMPHOCYTES, BODY FLUID 15 %; MONOCYTES,BODY FLUID 35 %; NEUTROPHIL, BODY FLUID 49 %
[2024-02-05] VITALS: BP_SYST 100; PULSE 96; RESP 18; TEMP 98.2; O2SAT 99
[2024-02-05 05:53] LABS: CALCIUM 7.1 mg/dL (8.4-11.0); CREATININE 1.01 mg/dL (0.55-1.30)
[2024-02-05 06:24] LABS: POTASSIUM 2.7 mmol/L (3.5-5.1)
[2024-02-05 07:26] LABS: BASOPHILS % (AUTO) 0.6 % (0.0-2.0); EOSINOPHILS # (AUTO) 0.1 K/uL (0.0-0.4); EOSINOPHILS % (AUTO) 0.9 % (0.0-4.0); HEMATOCRIT 23.5 % (36-54); HEMOGLOBIN 7.9 g/dL (14.0-18.0); LYMPHOCYTES % (AUTO) 13.8 % (20.5-51.5); MEAN CORPUSCULAR HEMOGLOBIN 35 pg (27-31); MEAN CORPUSCULAR HGB CONC 34 % (32-36); MEAN CORPUSCULAR VOLUME 104 fL (79.0-98.0); MONOCYTES % (AUTO) 13.2 % (1.7-9.3); NEUTROPHILS # (AUTO) 5.2 K/uL (1.8-7.7); NEUTROPHILS % (AUTO) 71.5 % (40.0-70.0); PLATELET COUNT (AUTO) 78 K/uL (130-430); RED BLOOD CELL COUNT(AUTO) 2.27 MIL/uL (4.2-6.2); RED CELL DISTRIBUTION WIDTH 15.9 % (9.0-15.0); WHITE BLOOD COUNT (AUTO) 7.3 K/uL (4.8-10.8)
[2024-02-05] MEDS: KCL 20 mEq in 100 mL (PREMIX) 100 ML IV ONE ×2 (07:42→11:09)
[2024-02-05 08:21] VITALS: BP_SYST 96; RESP 18; TEMP 98.6; O2SAT 96
[2024-02-05] MEDS ORDERED: cefTRIAXone 2 GM in D5W 50 ML IV SCH (09:00)
[2024-02-05 11:56] VITALS: BP_SYST 89; PULSE 73; RESP 16; TEMP 97.7; O2SAT 97
[2024-02-05 15:15] VITALS: BP_SYST 117; PULSE 99; RESP 18; TEMP 97.4; O2SAT 94
[2024-02-05 20:00] VITALS: BP_SYST 97; PULSE 98; RESP 18; TEMP 98; O2SAT 98
[2024-02-05] MEDS: cefTRIAXone 2 GM in D5W 50 ML IV SCH (21:10)
[2024-02-05 22:18] VITALS: O2SAT 98
[2024-02-06] VITALS: BP_SYST 101; PULSE 94; RESP 18; TEMP 98.2; O2SAT 98
[2024-02-06 08:00] VITALS: BP_SYST 89; PULSE 93; RESP 16; TEMP 99; O2SAT 97
[2024-02-06 08:21] LABS: ALBUMIN 2.1 g/dL (3.4-4.8); CALCIUM 7.3 mg/dL (8.4-11.0); CREATININE 1.15 mg/dL (0.55-1.30); POTASSIUM 3.3 mmol/L (3.5-5.1); TOTAL BILIRUBIN 2.3 mg/dL (0.0-1.0); TOTAL PROTEIN, SERUM 5.7 g/dL (6.4-8.3)
[2024-02-06] MEDS: SPIRONOLACTONE 50 MG TABLET (ALDACTONE) PO SCH (09:00)
[2024-02-06 09:25] LABS: BASOPHILS # (AUTO) 0.1 K/uL (0.0-0.2); BASOPHILS % (AUTO) 0.5 % (0.0-2.0); EOSINOPHILS # (AUTO) 0.1 K/uL (0.0-0.4); EOSINOPHILS % (AUTO) 0.9 % (0.0-4.0); HEMATOCRIT 26.3 % (36-54); HEMOGLOBIN 8.7 g/dL (14.0-18.0); LYMPHOCYTES # (AUTO) 1.5 K/uL (1.0-5.5); LYMPHOCYTES % (AUTO) 13.2 % (20.5-51.5); MEAN CORPUSCULAR HEMOGLOBIN 34 pg (27-31); MEAN CORPUSCULAR HGB CONC 33 % (32-36); MEAN CORPUSCULAR VOLUME 104 fL (79.0-98.0); MONOCYTES # (AUTO) 1.6 K/uL (0.0-1.0); MONOCYTES % (AUTO) 14.5 % (1.7-9.3); NEUTROPHILS # (AUTO) 7.8 K/uL (1.8-7.7); NEUTROPHILS % (AUTO) 70.9 % (40.0-70.0); PLATELET COUNT (AUTO) 107 K/uL (130-430); RED BLOOD CELL COUNT(AUTO) 2.55 MIL/uL (4.2-6.2); RED CELL DISTRIBUTION WIDTH 16.5 % (9.0-15.0)
[2024-02-06 11:24] VITALS: BP_SYST 107; PULSE 79; RESP 18; TEMP 98.4; O2SAT 96
[2024-02-06 16:17] VITALS: BP_SYST 82; PULSE 72; RESP 17; TEMP 98.9; O2SAT 98
[2024-02-06 19:00] VITALS: O2SAT 98
[2024-02-06 21:00] VITALS: BP_SYST 78; PULSE 91; RESP 17; TEMP 98.2; O2SAT 98
[2024-02-07] VITALS (7 sets, daily range): BP systolic 72–93; PULSE 67–95; RESP 13–16; TEMP 97.7–98.7; O2SAT 95–100
[2024-02-07] MEDS: ALBUMIN HUMAN 25% 50 ML IV ONE (09:53)
[2024-02-07 10:38] LABS: BASOPHILS # (AUTO) 0.1 K/uL (0.0-0.2); BASOPHILS % (AUTO) 0.7 % (0.0-2.0); EOSINOPHILS # (AUTO) 0.3 K/uL (0.0-0.4); EOSINOPHILS % (AUTO) 2.9 % (0.0-4.0); HEMATOCRIT 28.7 % (36-54); HEMOGLOBIN 9.3 g/dL (14.0-18.0); LYMPHOCYTES # (AUTO) 2.2 K/uL (1.0-5.5); LYMPHOCYTES % (AUTO) 21.1 % (20.5-51.5); MEAN CORPUSCULAR HEMOGLOBIN 34 pg (27-31); MEAN CORPUSCULAR HGB CONC 32 % (32-36); MEAN CORPUSCULAR VOLUME 105 fL (79.0-98.0); MONOCYTES # (AUTO) 1.3 K/uL (0.0-1.0); MONOCYTES % (AUTO) 12.1 % (1.7-9.3); NEUTROPHILS # (AUTO) 6.7 K/uL (1.8-7.7); NEUTROPHILS % (AUTO) 63.2 % (40.0-70.0); PLATELET COUNT (AUTO) 109 K/uL (130-430); RED BLOOD CELL COUNT(AUTO) 2.72 MIL/uL (4.2-6.2); RED CELL DISTRIBUTION WIDTH 16.8 % (9.0-15.0); WHITE BLOOD COUNT (AUTO) 10.6 K/uL (4.8-10.8)
[2024-02-07 11:10] LABS: ALBUMIN 1.9 g/dL (3.4-4.8); CALCIUM 7.3 mg/dL (8.4-11.0); CREATININE 1.22 mg/dL (0.55-1.30); POTASSIUM 3.6 mmol/L (3.5-5.1); TOTAL BILIRUBIN 2.2 mg/dL (0.0-1.0); TOTAL PROTEIN, SERUM 5.6 g/dL (6.4-8.3)
[2024-02-08] VITALS (7 sets, daily range): BP systolic 85–108; PULSE 77–95; RESP 12–20; TEMP 98.9–100.4; O2SAT 93–100
[2024-02-08 06:27] LABS: BASOPHILS # (AUTO) 0.1 K/uL (0.0-0.2); BASOPHILS % (AUTO) 0.7 % (0.0-2.0); EOSINOPHILS # (AUTO) 0.3 K/uL (0.0-0.4); EOSINOPHILS % (AUTO) 2.6 % (0.0-4.0); HEMATOCRIT 25.5 % (36-54); HEMOGLOBIN 8.5 g/dL (14.0-18.0); LYMPHOCYTES # (AUTO) 1.7 K/uL (1.0-5.5); LYMPHOCYTES % (AUTO) 17.8 % (20.5-51.5); MEAN CORPUSCULAR HEMOGLOBIN 34 pg (27-31); MEAN CORPUSCULAR HGB CONC 33 % (32-36); MEAN CORPUSCULAR VOLUME 102 fL (79.0-98.0); MONOCYTES # (AUTO) 1.4 K/uL (0.0-1.0); NEUTROPHILS # (AUTO) 6.4 K/uL (1.8-7.7); NEUTROPHILS % (AUTO) 64.9 % (40.0-70.0); PLATELET COUNT (AUTO) 114 K/uL (130-430); RED CELL DISTRIBUTION WIDTH 15.7 % (9.0-15.0); WHITE BLOOD COUNT (AUTO) 9.9 K/uL (4.8-10.8)
[2024-02-08 06:56] LABS: ALBUMIN 2.1 g/dL (3.4-4.8); CALCIUM 7.3 mg/dL (8.4-11.0); CREATININE 1.27 mg/dL (0.55-1.30); POTASSIUM 3.5 mmol/L (3.5-5.1); TOTAL BILIRUBIN 1.7 mg/dL (0.0-1.0); TOTAL PROTEIN, SERUM 5.7 g/dL (6.4-8.3)
[2024-02-08] MEDS: BALSAM PERU/CASTOR OIL 56.7 GM OINT...G. TP ONE (15:00)
[2024-02-09] VITALS (8 sets, daily range): BP systolic 86–99; PULSE 71–107; RESP 14–18; TEMP 97.8–99; O2SAT 94–100
[2024-02-09 07:15] LABS: ALBUMIN 1.9 g/dL (3.4-4.8); CALCIUM 7.3 mg/dL (8.4-11.0); CREATININE 1.21 mg/dL (0.55-1.30); POTASSIUM 3.7 mmol/L (3.5-5.1); TOTAL BILIRUBIN 2.2 mg/dL (0.0-1.0); TOTAL PROTEIN, SERUM 5.7 g/dL (6.4-8.3)
[2024-02-09 07:24] LABS: BASOPHILS # (AUTO) 0.1 K/uL (0.0-0.2); BASOPHILS % (AUTO) 0.8 % (0.0-2.0); EOSINOPHILS # (AUTO) 0.2 K/uL (0.0-0.4); EOSINOPHILS % (AUTO) 1.9 % (0.0-4.0); HEMATOCRIT 24.4 % (36-54); HEMOGLOBIN 8.1 g/dL (14.0-18.0); LYMPHOCYTES # (AUTO) 1.9 K/uL (1.0-5.5); MEAN CORPUSCULAR HEMOGLOBIN 34 pg (27-31); MEAN CORPUSCULAR HGB CONC 33 % (32-36); MEAN CORPUSCULAR VOLUME 101 fL (79.0-98.0); MONOCYTES # (AUTO) 1.5 K/uL (0.0-1.0); MONOCYTES % (AUTO) 12.9 % (1.7-9.3); NEUTROPHILS # (AUTO) 7.6 K/uL (1.8-7.7); NEUTROPHILS % (AUTO) 67.4 % (40.0-70.0); PLATELET COUNT (AUTO) 137 K/uL (130-430); RED CELL DISTRIBUTION WIDTH 15.5 % (9.0-15.0); WHITE BLOOD COUNT (AUTO) 11.3 K/uL (4.8-10.8)
[2024-02-09 07:42] LABS: INR 1.7 (0.80-1.20); PROTHROMBIN TIME 17.5 SECS (9.5-12.5)
[2024-02-09] MEDS: BALSAM PERU/CASTOR OIL 56.7 GM OINT...G. TP SCH (09:51)
[2024-02-09] MEDS: ALBUMIN HUMAN 25% 50 ML IV SCH (18:03)
[2024-02-10] VITALS: BP_SYST 89; PULSE 77; RESP 16; TEMP 97.6; O2SAT 99
[2024-02-10] MEDS: KETOROLAC TROMETHAMINE 15 MG VIAL IVP PRN (04:30)
[2024-02-10 04:34] VITALS: BP_SYST 91; PULSE 82; RESP 16; TEMP 98.1; O2SAT 92
[2024-02-10 07:00] LABS: BASOPHILS # (AUTO) 0.1 K/uL (0.0-0.2); BASOPHILS % (AUTO) 0.7 % (0.0-2.0); EOSINOPHILS # (AUTO) 0.2 K/uL (0.0-0.4); EOSINOPHILS % (AUTO) 2.6 % (0.0-4.0); HEMATOCRIT 25.2 % (36-54); HEMOGLOBIN 8.3 g/dL (14.0-18.0); LYMPHOCYTES # (AUTO) 1.5 K/uL (1.0-5.5); LYMPHOCYTES % (AUTO) 18.4 % (20.5-51.5); MEAN CORPUSCULAR HEMOGLOBIN 34 pg (27-31); MEAN CORPUSCULAR HGB CONC 33 % (32-36); MEAN CORPUSCULAR VOLUME 103 fL (79.0-98.0); MONOCYTES # (AUTO) 0.9 K/uL (0.0-1.0); MONOCYTES % (AUTO) 10.4 % (1.7-9.3); NEUTROPHILS # (AUTO) 5.7 K/uL (1.8-7.7); NEUTROPHILS % (AUTO) 67.9 % (40.0-70.0); PLATELET COUNT (AUTO) 150 K/uL (130-430); RED BLOOD CELL COUNT(AUTO) 2.45 MIL/uL (4.2-6.2); RED CELL DISTRIBUTION WIDTH 15.6 % (9.0-15.0); WHITE BLOOD COUNT (AUTO) 8.3 K/uL (4.8-10.8)
[2024-02-10 07:27] LABS: ALBUMIN 2.2 g/dL (3.4-4.8); CALCIUM 7.5 mg/dL (8.4-11.0); CREATININE 0.98 mg/dL (0.55-1.30); POTASSIUM 3.8 mmol/L (3.5-5.1); TOTAL BILIRUBIN 1.4 mg/dL (0.0-1.0); TOTAL PROTEIN, SERUM 5.8 g/dL (6.4-8.3)
[2024-02-10 08:00] VITALS: O2SAT 100
[2024-02-10] MEDS: FUROSEMIDE 20 MG TABLET PO ONE (11:30)
[2024-02-10 12:46] VITALS: BP_SYST 82; PULSE 75; RESP 16; TEMP 97.8; O2SAT 99
[2024-02-10 16:32] VITALS: BP_SYST 87; PULSE 79; RESP 16; TEMP 98.1; O2SAT 98
[2024-02-10 20:00] VITALS: BP_SYST 106; PULSE 77; TEMP 99.8; O2SAT 98
[2024-02-11] VITALS: BP_SYST 83; PULSE 80; RESP 17; TEMP 98.4; O2SAT 96
[2024-02-11 08:38] LABS: BASOPHILS # (AUTO) 0.1 K/uL (0.0-0.2); BASOPHILS % (AUTO) 1.3 % (0.0-2.0); EOSINOPHILS # (AUTO) 0.2 K/uL (0.0-0.4); EOSINOPHILS % (AUTO) 2.4 % (0.0-4.0); HEMATOCRIT 32.8 % (36-54); HEMOGLOBIN 10.4 g/dL (14.0-18.0); LYMPHOCYTES # (AUTO) 1.5 K/uL (1.0-5.5); LYMPHOCYTES % (AUTO) 15.6 % (20.5-51.5); MEAN CORPUSCULAR HEMOGLOBIN 34 pg (27-31); MEAN CORPUSCULAR HGB CONC 32 % (32-36); MEAN CORPUSCULAR VOLUME 106 fL (79.0-98.0); MONOCYTES # (AUTO) 0.5 K/uL (0.0-1.0); MONOCYTES % (AUTO) 5.5 % (1.7-9.3); NEUTROPHILS # (AUTO) 7.4 K/uL (1.8-7.7); NEUTROPHILS % (AUTO) 75.2 % (40.0-70.0); PLATELET COUNT (AUTO) 191 K/uL (130-430); RED CELL DISTRIBUTION WIDTH 16.7 % (9.0-15.0); WHITE BLOOD COUNT (AUTO) 9.8 K/uL (4.8-10.8)
[2024-02-11 09:09] LABS: ALBUMIN 2.5 g/dL (3.4-4.8); CALCIUM 7.7 mg/dL (8.4-11.0); CREATININE 1.33 mg/dL (0.55-1.30); TOTAL BILIRUBIN 1.2 mg/dL (0.0-1.0)
[2024-02-11] MEDS: FUROSEMIDE 20 MG TABLET PO SCH (09:17)
[2024-02-11 11:00] VITALS: O2SAT 100
[2024-02-11 11:52] LABS: ANISOCYTOSIS 1+; TARGET CELLS RARE
[2024-02-11 12:18] VITALS: BP_SYST 69; PULSE 63; RESP 18; TEMP 99.3; O2SAT 100
[2024-02-11] MEDS ORDERED: FURO-150 PO (14:09)
[2024-02-11] MEDS ORDERED: MULT400T13 GT (14:09)
[2024-02-11] MEDS ORDERED: SPIR50TA PO (14:09)
[2024-02-11] MEDS ORDERED: MIRT-91 PO (14:09)
[2024-02-11] MEDS ORDERED: Lactulose PO (14:09)
[2024-02-11] MEDS ORDERED: MIDO5TAB4 PO (14:09)
[2024-02-11 14:12] VITALS: BP_SYST 98; PULSE 93; RESP 12; TEMP 98.5
[2024-02-11 14:18] VITALS: BP_SYST 98; PULSE 93; RESP 12; TEMP 98.5; O2SAT 100
== END 2024-02-11 15:10 | disposition left against medical advice (07) | DRG 432 ==
LOC: SED 19:58 → SMU 23:01 → STU 01-30 00:25 → SMU 01-30 00:26 → STU 01-30 02:35 → SMU 01-31 22:56
PROVIDERS: ADMIT Internal Medicine; ATTEND Internal Medicine
PROC: 0W9G3ZZ Drainage of Peritoneal Cavity, Percutaneous Approach (ICD-10-PCS; principal; 2024-02-01)
PROC: 0W9G3ZZ Drainage of Peritoneal Cavity, Percutaneous Approach (ICD-10-PCS; 2024-02-04)
PROC: 0W9G3ZZ Drainage of Peritoneal Cavity, Percutaneous Approach (ICD-10-PCS; 2024-02-09)
DX: K70.31 Alcoholic cirrhosis of liver with ascites (principal); E43 Unspecified severe protein-calorie malnutrition; I85.11 Secondary esophageal varices with bleeding; D68.9 Coagulation defect, unspecified; E87.1 Hypo-osmolality and hyponatremia; Z59.00 Homelessness unspecified; F10.10 Alcohol abuse, uncomplicated; D64.9 Anemia, unspecified; D69.6 Thrombocytopenia, unspecified; K76.82 Hepatic encephalopathy; K42.9 Umbilical hernia without obstruction or gangrene; F32.A Depression, unspecified; E87.6 Hypokalemia; J45.909 Unspecified asthma, uncomplicated; Z68.30 Body mass index [BMI] 30.0-30.9, adult; Z79.899 Other long term (current) drug therapy; K70.40 Alcoholic hepatic failure without coma
CPT/HCPCS: 36415; 49083; 71045; 72040; 76705; 80048; 80053; 80074; 80076; 82042; 82140; 82947; 83051; 83690; 84157; 85014; 85025; 85048; 85049; 85610; 85730; 86592; 86631; 86886; 86900; 86901; 87070; 88108; 88305; 89051; 89060; 97110-GP; 97116-GP; 97530-GP; 99285; G0378; G0482; J0696; J1885; J1940; J2060; J2270; J2405; J2470; J2765; J3480; J7060; P9046

== ENCOUNTER 2024-02-28 07:35 | Emergency (ER) | payer OTHER, MEDICAID ==
[~2024-02-28] VITALS: Ht 154.9 cm; Wt 54.9 kg
[2024-02-28 07:35] VITALS: BP_SYST 122; PULSE 97; RESP 18; TEMP 97.5; O2SAT 98
[~2024-02-28 07:35] MED LIST changes: +FURO-150 PO; +Lactulose PO; +MIDO5TAB4 PO; +MIRT-91 PO; +MULT400T13 GT; +SPIR50TA PO
[2024-02-28 08:35] LABS: BASOPHILS % (AUTO) 0.9 % (0.0-2.0); EOSINOPHILS # (AUTO) 0.1 K/uL (0.0-0.4); EOSINOPHILS % (AUTO) 3.2 % (0.0-4.0); HEMATOCRIT 28.6 % (36-54); HEMOGLOBIN 9.5 g/dL (14.0-18.0); LYMPHOCYTES # (AUTO) 0.6 K/uL (1.0-5.5); LYMPHOCYTES % (AUTO) 13.3 % (20.5-51.5); MEAN CORPUSCULAR HEMOGLOBIN 33 pg (27-31); MEAN CORPUSCULAR HGB CONC 33 % (32-36); MEAN CORPUSCULAR VOLUME 99 fL (79.0-98.0); MONOCYTES # (AUTO) 0.3 K/uL (0.0-1.0); MONOCYTES % (AUTO) 6.4 % (1.7-9.3); NEUTROPHILS # (AUTO) 3.5 K/uL (1.8-7.7); NEUTROPHILS % (AUTO) 76.2 % (40.0-70.0); PLATELET COUNT (AUTO) 168 K/uL (130-430); RED BLOOD CELL COUNT(AUTO) 2.89 MIL/uL (4.2-6.2); RED CELL DISTRIBUTION WIDTH 14.5 % (9.0-15.0); WHITE BLOOD COUNT (AUTO) 4.7 K/uL (4.8-10.8)
[2024-02-28 09:12] LABS: ALBUMIN 2.5 g/dL (3.4-4.8); BILIRUBIN,DIRECT 0.9 mg/dL (0.0-0.3); CALCIUM 7.9 mg/dL (8.4-11.0); CREATININE 0.95 mg/dL (0.55-1.30); POTASSIUM 3.3 mmol/L (3.5-5.1); TOTAL BILIRUBIN 2.6 mg/dL (0.0-1.0); TOTAL PROTEIN, SERUM 6.9 g/dL (6.4-8.3)
[2024-02-28] MEDS ORDERED: BACITRACIN 1 GM OINT TP ONE (09:37)
== END 2024-02-28 10:00 | disposition home or self-care (01) ==
LOC: SED 07:35
DX: K70.31 Alcoholic cirrhosis of liver with ascites (principal); K25.9 Gastric ulcer, unspecified as acute or chronic, without hemorrhage or perforation; J45.909 Unspecified asthma, uncomplicated; Z90.49 Acquired absence of other specified parts of digestive tract; Z79.899 Other long term (current) drug therapy; Z79.2 Long term (current) use of antibiotics
CPT/HCPCS: 36415; 80048; 80076; 85025; 99283

== ENCOUNTER 2024-03-07 02:29 | Emergency (ER) | payer OTHER, MEDICAID ==
[~2024-03-07] VITALS: Ht 162.6 cm; Wt 44.0 kg
[2024-03-07 02:33] VITALS: BP_SYST 106; PULSE 84; RESP 19; TEMP 97.9; O2SAT 100
[2024-03-07 03:13] LABS: BASOPHILS # (AUTO) 0.1 K/uL (0.0-0.2); BASOPHILS % (AUTO) 0.8 % (0.0-2.0); EOSINOPHILS # (AUTO) 0.4 K/uL (0.0-0.4); EOSINOPHILS % (AUTO) 4.2 % (0.0-4.0); HEMATOCRIT 34.7 % (36-54); HEMOGLOBIN 11.4 g/dL (14.0-18.0); LYMPHOCYTES # (AUTO) 2.2 K/uL (1.0-5.5); LYMPHOCYTES % (AUTO) 25.4 % (20.5-51.5); MEAN CORPUSCULAR HEMOGLOBIN 32 pg (27-31); MEAN CORPUSCULAR HGB CONC 33 % (32-36); MEAN CORPUSCULAR VOLUME 97 fL (79.0-98.0); MONOCYTES # (AUTO) 0.5 K/uL (0.0-1.0); MONOCYTES % (AUTO) 6.1 % (1.7-9.3); NEUTROPHILS # (AUTO) 5.5 K/uL (1.8-7.7); NEUTROPHILS % (AUTO) 63.5 % (40.0-70.0); PLATELET COUNT (AUTO) 189 K/uL (130-430); RED BLOOD CELL COUNT(AUTO) 3.59 MIL/uL (4.2-6.2); RED CELL DISTRIBUTION WIDTH 15.1 % (9.0-15.0); WHITE BLOOD COUNT (AUTO) 8.6 K/uL (4.8-10.8)
[2024-03-07 03:31] LABS: INR 1.3 (0.80-1.20); PROTHROMBIN TIME 13.9 SECS (9.5-12.5)
[2024-03-07 03:32] LABS: ALBUMIN 2.8 g/dL (3.4-4.8); BILIRUBIN,DIRECT 0.7 mg/dL (0.0-0.3); CALCIUM 7.9 mg/dL (8.4-11.0); CREATININE 0.9 mg/dL (0.55-1.30); POTASSIUM 3.4 mmol/L (3.5-5.1); TOTAL BILIRUBIN 1.7 mg/dL (0.0-1.0); TOTAL PROTEIN, SERUM 7.1 g/dL (6.4-8.3)
[2024-03-07 03:55] VITALS: BP_SYST 104; PULSE 101; RESP 22; TEMP 97.7; O2SAT 98
== END 2024-03-07 03:55 | disposition home or self-care (01) ==
LOC: SED 02:29
DX: K70.31 Alcoholic cirrhosis of liver with ascites (principal); R10.9 Unspecified abdominal pain; J45.909 Unspecified asthma, uncomplicated; Z79.899 Other long term (current) drug therapy; Z79.2 Long term (current) use of antibiotics
CPT/HCPCS: 36415; 80048; 80076; 85025; 85610; 85730; 99283

== ENCOUNTER 2024-04-01 11:53 | Emergency (ER) | payer OTHER, MEDICAID ==
[~2024-04-01] VITALS: Ht 162.6 cm; Wt 61.7 kg
[2024-04-01 12:16] VITALS: BP_SYST 117; PULSE 107; RESP 18; TEMP 98.3; O2SAT 98
[2024-04-01 12:59] LABS: BASOPHILS % (AUTO) 0.8 % (0.0-2.0); EOSINOPHILS # (AUTO) 0.1 K/uL (0.0-0.4); EOSINOPHILS % (AUTO) 2.1 % (0.0-4.0); HEMATOCRIT 30.6 % (36-54); HEMOGLOBIN 10.1 g/dL (14.0-18.0); LYMPHOCYTES # (AUTO) 0.8 K/uL (1.0-5.5); LYMPHOCYTES % (AUTO) 14.1 % (20.5-51.5); MEAN CORPUSCULAR HEMOGLOBIN 30 pg (27-31); MEAN CORPUSCULAR HGB CONC 33 % (32-36); MEAN CORPUSCULAR VOLUME 92 fL (79.0-98.0); MONOCYTES # (AUTO) 0.3 K/uL (0.0-1.0); MONOCYTES % (AUTO) 5.7 % (1.7-9.3); NEUTROPHILS # (AUTO) 4.2 K/uL (1.8-7.7); NEUTROPHILS % (AUTO) 77.3 % (40.0-70.0); PLATELET COUNT (AUTO) 84 K/uL (130-430); RED BLOOD CELL COUNT(AUTO) 3.32 MIL/uL (4.2-6.2); WHITE BLOOD COUNT (AUTO) 5.4 K/uL (4.8-10.8)
[2024-04-01 13:36] LABS: ALBUMIN 1.8 g/dL (3.4-4.8); BILIRUBIN,DIRECT 0.4 mg/dL (0.0-0.3); CALCIUM 7.2 mg/dL (8.4-11.0); CREATININE 0.82 mg/dL (0.55-1.30); POTASSIUM 3.5 mmol/L (3.5-5.1); TOTAL BILIRUBIN 0.9 mg/dL (0.0-1.0)
[2024-04-01 13:58] LABS: INR 1.3 (0.80-1.20); PROTHROMBIN TIME 13.1 SECS (9.5-12.5)
[2024-04-01 14:06] VITALS: BP_SYST 90; PULSE 98; RESP 22; TEMP 98.3; O2SAT 94
== END 2024-04-01 14:06 | disposition home or self-care (01) ==
LOC: SED 11:53
DX: K70.31 Alcoholic cirrhosis of liver with ascites (principal); J45.909 Unspecified asthma, uncomplicated; Z79.899 Other long term (current) drug therapy; Z79.2 Long term (current) use of antibiotics
CPT/HCPCS: 36415; 80048; 80076; 82150; 83605; 83690; 85025; 85610; 85730; 99283

== ENCOUNTER 2024-04-15 16:06 | Emergency (ER) | payer OTHER, MEDICAID ==
[~2024-04-15] VITALS: Ht 162.6 cm; Wt 54.4 kg
[2024-04-15 16:14] VITALS: BP_SYST 109; PULSE 118; RESP 18; TEMP 98; O2SAT 95
[2024-04-15 16:52] LABS: BASOPHILS # (AUTO) 0.1 K/uL (0.0-0.2); BASOPHILS % (AUTO) 1.1 % (0.0-2.0); EOSINOPHILS # (AUTO) 0.1 K/uL (0.0-0.4); EOSINOPHILS % (AUTO) 0.9 % (0.0-4.0); HEMATOCRIT 29.7 % (36-54); HEMOGLOBIN 10.4 g/dL (14.0-18.0); LYMPHOCYTES # (AUTO) 1.1 K/uL (1.0-5.5); LYMPHOCYTES % (AUTO) 16.1 % (20.5-51.5); MEAN CORPUSCULAR HEMOGLOBIN 32 pg (27-31); MEAN CORPUSCULAR HGB CONC 35 % (32-36); MEAN CORPUSCULAR VOLUME 90 fL (79.0-98.0); MONOCYTES # (AUTO) 0.5 K/uL (0.0-1.0); NEUTROPHILS # (AUTO) 5.2 K/uL (1.8-7.7); NEUTROPHILS % (AUTO) 74.9 % (40.0-70.0); PLATELET COUNT (AUTO) 174 K/uL (130-430); RED CELL DISTRIBUTION WIDTH 14.6 % (9.0-15.0)
[2024-04-15 17:07] LABS: BILIRUBIN,DIRECT 0.8 mg/dL (0.0-0.3); CALCIUM 7.3 mg/dL (8.4-11.0); CREATININE 1.01 mg/dL (0.55-1.30); POTASSIUM 3.4 mmol/L (3.5-5.1); TOTAL BILIRUBIN 1.9 mg/dL (0.0-1.0); TOTAL PROTEIN, SERUM 6.9 g/dL (6.4-8.3)
[2024-04-15 17:21] LABS: INR 1.2 (0.80-1.20); PROTHROMBIN TIME 12.4 SECS (9.5-12.5)
[2024-04-15 18:54] VITALS: BP_SYST 118; PULSE 88; RESP 17; TEMP 98.4; O2SAT 97
== END 2024-04-15 18:18 | disposition home or self-care (01) ==
LOC: SED 16:06
DX: K70.31 Alcoholic cirrhosis of liver with ascites (principal); J45.909 Unspecified asthma, uncomplicated; F32.A Depression, unspecified; F41.9 Anxiety disorder, unspecified; R10.9 Unspecified abdominal pain; Z87.19 Personal history of other diseases of the digestive system; Z79.899 Other long term (current) drug therapy
CPT/HCPCS: 36415; 49083; 76705; 80048; 80076; 82150; 83605; 83690; 85025; 85610; 85730; 99285